=== PATIENT | male | born 1945 | race Caucasian/White ===

== ENCOUNTER 2018-10-17 08:03 | Outpatient (CLI) | payer MEDICARE, SELFPAY ==
[2018-10-17 09:57] LABS: ALT 22 U/L (12-78); AST 24 U/L (15-37); Albumin 3.8 g/dL (3.4-5.0); Alkaline Phosphatase 60 U/L (46-116); Anion Gap 9.2 mmol/L (3-11); BUN 25 mg/dL (7-18); Bilirubin, Total 0.8 mg/dL (0.2-1.0); CO2 28.8 mmol/L (21.0-32.0); CREATININE 1.41 mg/dL (0.70-1.30); Calcium 9.3 mg/dL (8.5-10.1); Chloride 103 mmol/L (98-107); Cholesterol 149 mg/dL (50-200); Glucose 94 mg/dL (70-100); HDL Cholesterol 46 mg/dL (40-60); LDL CHOLESTEROL 83 mg/dL (<100); Potassium 4.2 mmol/L (3.5-5.1); Sodium 141 mmol/L (136-145); Total Protein 7.9 g/dL (6.4-8.2); Triglyceride 110 mg/dL (30-150)
[2018-10-17 10:13] LABS: Uric Acid 8.4 mg/dL (3.5-7.2)
== END 2018-10-17 08:23 ==
PROVIDERS: PCP Family Medicine; Visit Provider Family Medicine
DX: I10 Essential (primary) hypertension (principal); E78.5 Hyperlipidemia, unspecified; M10.9 Gout, unspecified
CPT/HCPCS: 36415; 80053; 80061; 83721; 84550

== ENCOUNTER → 2018-12-23 09:35 | Outpatient (BNVA) | payer MEDICARE, SELFPAY | PROVIDERS: PCP Family Medicine; Visit Provider Nurse Practitioner Adult Health | DX: G56.03 Carpal tunnel syndrome, bilateral upper limbs (principal); I10 Essential (primary) hypertension; G56.23 Lesion of ulnar nerve, bilateral upper limbs | CPT/HCPCS: 95911; 99203; 99215 ==

== ENCOUNTER → 2019-01-19 12:45 | Outpatient (BNVA) | payer MEDICARE, SELFPAY | PROVIDERS: PCP Family Medicine; Referring Provider Family Medicine; Visit Provider Student in an Organized Health Care Education/Training Program | DX: G56.03 Carpal tunnel syndrome, bilateral upper limbs; M77.01 Medial epicondylitis, right elbow | CPT/HCPCS: 99204; 99214 ==

== ENCOUNTER 2019-01-19 13:16 | Outpatient (REF) | payer MEDICARE, SELFPAY ==
--- NOTE | 2019-01-19 12:10 | SKI_PTH ---
PATIENT: Steve Langley LOC: [facility] U#:[id number] AGE/SX: 73/M ROOM: RE01/19/[address]: Kanu Savage DO : 1945 BED: DIS: 01/19/2019 SPEC #: [id number] RECD: 01/19/19 18:10 STATUS: HARLEY REFinesse #: [id number] KELLY: 01/19/19 12:[address]: Kanu Savage DEPT: Surgical Specimen RECD BY: Jackie Chery ENTERED: 01/19/19 18:11 SP TYPE: ROXANNE GOLDSMITH DR: Juana Ibanez MD, DC Tissues: 1 - SKIN BIOPSY(SHAVE/PUNCH) Procedures: SKIN LEVEL 4 Comments: [id number]
== END 2019-01-19 13:36 ==
LOC: LBN 13:16
PROVIDERS: PCP Family Medicine; Visit Provider Otolaryngology Otolaryngology/Facial Plastic Surgery
DX: L57.0 Actinic keratosis (principal)
CPT/HCPCS: 88305

== ENCOUNTER 2019-02-16 07:38 | Outpatient (CLI) | payer MEDICARE, SELFPAY ==
[2019-02-16 09:52] LABS: Hemoglobin A1C 5.7 % (4.5-6.2)
[2019-02-16 11:29] LABS: ALT 27 U/L (12-78); AST 27 U/L (15-37); Albumin 3.9 g/dL (3.4-5.0); Alkaline Phosphatase 60 U/L (46-116); Anion Gap 10.2 mmol/L (3-11); BUN 19 mg/dL (7-18); Bilirubin, Total 0.5 mg/dL (0.2-1.0); CO2 24.8 mmol/L (21.0-32.0); CREATININE 1.16 mg/dL (0.70-1.30); Calcium 9.5 mg/dL (8.5-10.1); Chloride 103 mmol/L (98-107); Glucose 102 mg/dL (70-100); Potassium 4.4 mmol/L (3.5-5.1); Sodium 138 mmol/L (136-145); TSH (W/Ref FT4) 3.29 uIU/mL (0.358-3.74); Total Protein 7.7 g/dL (6.4-8.2); Uric Acid 6.5 mg/dL (3.5-7.2)
== END 2019-02-16 07:58 ==
PROVIDERS: PCP Family Medicine; Visit Provider Family Medicine
DX: M10.9 Gout, unspecified (principal); N28.9 Disorder of kidney and ureter, unspecified; G56.00 Carpal tunnel syndrome, unspecified upper limb; G56.20 Lesion of ulnar nerve, unspecified upper limb; I10 Essential (primary) hypertension; R73.09 Other abnormal glucose
CPT/HCPCS: 36415; 80053; 83036; 84443; 84550

== ENCOUNTER 2019-04-17 08:46 | Outpatient (CLI) | payer MEDICARE, SELFPAY ==
--- NOTE | 2019-04-17 08:00 | HPE_ITS ---
Assessment and Plan (1) Carpal tunnel syndrome of left wrist: Current visit: No Status: Chronic Plan: Educated patient on surgery covering surgical technique, recovery process, benefits and risks including but not limited to risk of infection, blood clot, damage to soft tissue/blood vessels/nerves in detail. After discussion patient gives verbal understanding of risks and elects to proceed with scheduling surgery. Patient had opportunity to have questions answered to their satisfaction. They will contact office if issues arise. Patient will continue to be scheduled for left ECTR with Dr. Amezcua. History of Present Illness Narrative: Mr. Langley is a 74-year-old male who presents to clinic for pre- operative visit for left ECTR with Dr. Amezcua. Patient has been experiencing bilateral hand numbness and tingling that has been present for approximately 7-8 months. Symptoms used to cause significant nighttime symptoms that would wake him up and resolve as he moved his hands around. Symptoms are also aggravated during the day especially when texting on his phone, typing, driving and using hand tools. He tried nighttime bracing which helped some but has continued to have daytime symptoms and stiffness that interferes with his desired activity. Patient was seen by neurology where he had nerve conduction studies which as per Ms. 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 Denies any fine motor dexterity loss. Due to his continued symptoms he w as seen in orthopedic clinic at which time he was offered surgical intervention. Patient was eager to proceed with left ECTR. Pertinent Surgical Information Patient's past medical history is pertinent for severe arteriosclerotic cardiovascular disease that required cardiac catheterization in 2004 for stent placement. However, patient denies any continued cardiac issues following 2005. States he has continued to do well with medication. Patient has had elective surgery following cardiac catheterization including cholecystectomy and several skin excisions without any complications. Denies any history of chest pain following his cardiac catheterization in 2004; no alarming symptoms were identified with review of systems at today's visit. Denies past medical history of: stroke, asthma, COPD, sleep apnea, liver issues, hepatitis, gastrointestinal ulcers, bleeding disorders, seizures, migraines, anxiety, depression, diabetes, autoimmune disorders, thyroid issues Denies prior complications from surgery or anesthesia. Review of Systems Constitutional Denies fever(s), Denies frequent falls and Denies headache(s) Eyes Denies change in vision ENT Denies dizziness, Denies ear discharge, Denies headache(s), Denies epistaxis, Denies nasal discharge and Denies sore throat Cardiovascular Denies chest pain, Denies rapid heart rate, Denies irregular heart rhythm, Denies dyspnea, Denies dyspnea on exertion, Denies orthopnea, Denies paroxysmal nocturnal dyspnea and Denies slow heart rate Respiratory Denies cough, Denies dyspnea, Denies dyspnea on exertion and Denies wheezing Gastrointestinal Denies abdominal pain, Denies melena, Denies hematochezia, Denies constipation, Denies diarrhea, Denies nausea and Denies vomiting Genitourinary Denies hematuria, Denies dysuria and Denies urinary urgency Musculoskeletal Reports as per HPI, Reports numbness and Reports tingling Neurologic Denies dizziness, Denies frequent falls, Denies headache(s), Reports numbness and Reports tingling Psychiatric Denies anxiety and Denies depression Allergic/Immunologic Denies wheezing [facility] History 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/15) ASCVD (arteriosclerotic cardiovascular disease) (Chronic) Basal cell carcinoma of nose (Chronic 07/18/15) Carotid artery stenosis (Chronic) Carpal tunnel syndrome of left wrist (Chronic) Carpal tunnel syndrome of right wrist (Chronic) Cervical radiculopathy (Chronic 03/15/16) Essential hypertension (Chronic 10/23/13) Gastric motor function disorder (Resolved) Gout (Chronic) Hyperlipidemia (Chronic) Lumbago (Chronic) Medial epicondylitis, 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) Pain of left great toe (Chronic 12/24/17) Renal insufficiency (Chronic) 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) Tobacco use disorder (Resolved) Ulnar neuropathy (Acute) Surgical History Cholecystectomy Colonoscopy - MAC (~1999) History of intravascular stent placement (Resolved) left heart cardiac cath Skin Cancer Removal Stent placement Social History Smoking/Tobacco Use Status: Former Tobacco Use Quit Date: 09/16/96 Second Hand Exposure: Yes Alcohol Intake: current Alcohol Intake frequency: 0-2 drinks per day Alcohol type: beer, wine and hard liquor Drug use: Never Substance use type: does not use Caregiver/Support person: No Household members: spouse Housing: house Pets and animals: Yes Pets and animals: cat(s), dog(s) and horse(s) Sexually active: Yes Current gender identity: male What is your relationship status?: How often do you talk on the phone with friends or family?: once per week How often do you get together with friends or relatives?: once per week How often do you attend latter day or uatsdin services?: decline to answer Do you belong to any clubs or organized social groups?: decline to answer Panel score (0-1 are the most socially isolated patients): 1 What type of physical activity do you participate in: aerobic and yoga Duration: 15-30 minutes/day Frequency: 3-4 times per week Sophia/Restorationism: No preference Special sophia needs: No Do you feel safe at home: Yes Do you feel safe in your relationship?: Yes Meds Home Medications Medication Instructions Recorded Confirmed Type multivitamin [Daily Multiple] 1 ea PO DAILY 10/11/16 04/17/19 History lisinopril 40 mg tablet 40 mg PO DAILY #90 tab-cap 11/04/18 04/17/19 Rx pravastatin 10 mg tablet 10 mg PO DAILY #90 tab-cap 11/04/18 04/17/19 Rx aspirin 81 mg chewable tablet 81 mg PO DAILY 12/23/18 04/17/19 History coenzyme Q10 100 mg capsule 100 mg PO DAILY 12/23/18 04/17/19 History adjuvant AS01B (PF)vial 1 of 2 1 ml IM ONCE #0.5 ml 02/24/19 04/17/19 Rx pneumoc 13-kendra conj-dip cr(PF) 0.5 0.5 ml IM ONCE #0.5 ml 02/24/19 04/17/19 Rx mL IM syringe omega-3 fatty acids 1,000 mg 1,000 mg PO DAILY 04/17/19 04/17/19 History capsule pyridoxine (vitamin B6) 100 mg 100 mg PO DAILY tab 04/17/19 04/17/19 History tablet Allergies Allergy/AdvReac Type Severity Reaction Status Date / Time No Known Allergies Allergy Unverified 08/02/19 13:36 Exam Const General: cooperative and no acute distress [facility] Head: normal to inspection, normocephalic and atraumatic Ears: external ears normal General nose exam: external nose normal and no nasal discharge Face and sinus: face symmetric Mouth: oral mucosae normal, lip normal, tongue normal and moist mucous membranes Teeth and gingiva: dentition normal Throat: posterior oropharynx normal Eyes General: appearance normal, both eyes and all related structures Pupils: PERRL EOM: EOM intact bilaterally Neck Neck: trachea midline Carotids: normal carotid upstroke Lymphatic: no lymphadenopathy noted Resp Effort & Inspection: normal respiratory effort and able to speak in complete sentences Auscultation: clear to auscultation bilaterally, no rales, no rhonchi and no wheezes Cardio Heart Sounds: S1 normal, S2 normal and no murmurs Pulses: radial pulses present bilaterally Skin General skin exam: no rashes or lesions noted
== END 2019-04-17 09:06 ==
PROVIDERS: PCP Family Medicine; Visit Provider Student in an Organized Health Care Education/Training Program
DX: G56.02 Carpal tunnel syndrome, left upper limb (principal); I10 Essential (primary) hypertension; Z01.818 Encounter for other preprocedural examination
CPT/HCPCS: NC

== ENCOUNTER 2019-04-30 10:05 | Day surgery (SDC) | payer MEDICARE, SELFPAY ==
[2019-04-17 08:56] VITALS: BP 127/69; PULSE 49; RESP 16; TEMP 36.4; O2SAT 99
--- NOTE | 2019-04-30 09:56 | PDOC.DSDIS_ITS ---
Discharge Plan Disposition Patient Disposition: HOME Condition: Good Discharge Details Reason For Visit: (L) CTS Attending Provider: Brian Amezcua Primary Care Provider: Juana Ibanez Home Meds and New Rx's Prescriptions: New hydrocodone-acetaminophen 5-325 mg tablet 1 tab PO Q6H PRN (Reason: pain) Qty: 4 RF: 0 acetaminophen 500 mg tablet 500 mg PO Q6H PRN (Reason: pain) Qty: 30 RF: 0 ibuprofen 600 mg tablet 600 mg PO TID PRNQty: 30 RF: 0 Continued aspirin [Aspirin Childrens] 81 mg tablet,chewable 81 mg PO DAILY RF: 0 coenzyme Q10 [CoQ-10] 100 mg capsule 100 mg PO DAILY RF: 0 Prevnar 13 (PF) 0.5 mL syringe 0.5 ml IM ONCE Qty: 0.5 RF: 0 Shingrix Adjuvant Component-PF suspension 1 ml IM ONCE Qty: 0.5 RF: 1 pyridoxine (vitamin B6) 100 mg tablet 100 mg PO DAILY RF: 0 omega-3 fatty acids 1,000 mg capsule 1,000 mg PO DAILY RF: 0 multivitamin [Daily Multiple] 1 EACH tablet 1 ea PO DAILY RF: 0 lisinopril 40 mg tablet 40 mg PO DAILY Qty: 90 RF: 4 pravastatin 10 mg tablet 10 mg PO DAILY Qty: 90 RF: 4 Discharge Instructions Stand Alone Forms: Goldie Nair Tunnel Release Referrals: Brian Amezcua MD [ [facility] STAFF PHYSICIAN] - Activity:: Activity as Tolerated Remove Dressings/Wound Care:: 48 hours Shower/Bathe:: 48 hours Diet:: As Tolerated DS: Diagnosis Discharge Diagnosis (1) Carpal tunnel syndrome of left wrist: Status: Chronic
[2019-04-30] MEDS: Lactated Ringers 1,000 ML 80 ML IV (10:20)
[2019-04-30 10:26] VITALS: BP 152/67; PULSE 46; RESP 19; TEMP 36.1; O2SAT 98
[2019-04-30] MEDS: ceFAZolin 2 GM/50 ML BAG IVPB (10:45)
[2019-04-30] MEDS: Sodium Bicarbonate 50 MEQ/50 ML VIAL (10:52)
[2019-04-30] MEDS: Lidocaine 1% Multi-Dose 50 ML VIAL (10:52)
[2019-04-30 11:50] VITALS: BP 151/69; PULSE 45; RESP 16; TEMP 36.1; O2SAT 100
--- NOTE | 2019-05-01 07:28 | W.PM.OP ---
Date of service: 04/30/19 Time of Service: 12:29 Operative Note DATE OF PROCEDURE: 04/30/19 PRE-OP DIAGNOSIS: Left Carpal Tunnel Syndrome POST-OP DIAGNOSIS: same PROCEDURE: Left Endoscopic Carpal Tunnel Release SURGEON: Brian Amezcua ANESTHESIA: WAQAS ESTIMATED BLOOD LOSS: 0 PATHOLOGY: none sent TOURNIQUET TIME: 3 COMPLICATIONS: None Patient was transported to: same day Patient's condition: stable Indications: I have seen Thaddeus in clinic for symptoms of carpal tunnel syndrome. The numbness, tingling, and pain limited function. Clinical exam findings confirmed the diagnosis of carpal tunnel syndrome. Nonoperative measures such as bracing, time, activity modifications had been tried but disability and pain persisted. I discussed carpal tunnel release with the patient. I reviewed the risks of the procedure to include, but not limited to, bleeding, infection, pain, stiffness, incomplete release, damage to nerves or vessels, persistent numbness, recurrence. Despite these risks, the patient elected to proceed. Findings: There was tightened carpal tunnel. This was dilated and released successfully with the endoscopic with increased space within the tunnel. The antebrachial fascia was released proximally freeing the median nerve at the wrist. Procedure Description: Thaddeus was greeted in the preoperative holding area where the correct side was identified and marked. The consent was reviewed with the patient and signed. The history and physical was updated. All questions were answered. He was taken back to the operating room. The patient was placed into the supine position on the operating room table with the left arm on an arm board. A nonsterile tourniquet was placed high onto the arm. All bony prominences were well padded. Prophylactic antibiotics in the form of Cefazolin were administered. The left arm was then prepped with Chloraprep and draped in a standard fashion with stockinette and extremity drape. A timeout to confirm correct identity, side and site, procedure, allergies, anesthesia, and medical concerns was performed. The surgical site was marked in the volar wrist creases in line with the radial border of the fourth ray. This area was anesthetized with approximately 6cc of 1% Lidocaine. The limb was then exsanguinated with an Esmarch. The skin was incised with a 15 blade, approximately 1cm. The skin only was cut and the deeper tissue was dissected bluntly with a tenotomy scissor, avoiding passing nerve and venous structures. The fascia was penetrated and opened bluntly. A two-prong skin hook was placed under this proximal fascial edge. A series of hamate finders were used to identify and dilate the carpal tunnel. Synovial elevator was used to free synovial attachments to the underside of the transverse carpal ligament. My thumb was kept in the palm to bi the distal extent of the carpal tunnel and correctly position the hand. The Microaire endoscope was inserted without difficulty and without resistance. Excellent visualization showed horizontally running fibers of the transverse carpal ligament (TCL). The distal extent of the TCL was visualized and the end of the scope palpated with the thumb. The blade was elevated and withdrawn from distal to proximal. The TCL was split into two flaps. The endoscope was reinserted to confirm complete release and any remnant ligament was incised. The scope was withdrawn and the proximal aspect of the carpal tunnel was grossly inspected and appeared release with the median nerve visible. The antebrachial fascia at the level of the wrist was then freed from the overlying skin and then the underlying median nerve with blunt dissection. This was transected longitudinally for about 3cm proximal to the wrist incision. The wound was then irrigated with easy flow of irrigant distally and proximally. The incision was closed with a single 4-0 Nylon suture. The wound was dressed with Xeroform, Gauze, Kerlix and Toro. The tourniquet was deflated with the initial dressing and held with some pressure. Blood flow returned easily to all digits with capillary refill less than 2 seconds. The patient tolerated the procedure well and was returned to the Same Day Surgery area in a stable condition suffering no known complication.
== END 2019-04-30 12:06 | disposition home or self-care (01) ==
LOC: SUR 10:05
PROVIDERS: PCP Family Medicine; Visit Provider Student in an Organized Health Care Education/Training Program
PROC: 01N54ZZ Release Median Nerve, Percutaneous Endoscopic Approach (ICD-10-PCS; CPT 29848; principal; 2019-04-30 12:00)
DX: G56.02 Carpal tunnel syndrome, left upper limb (principal); I10 Essential (primary) hypertension
CPT/HCPCS: 29848; J0690; L3650

== ENCOUNTER → 2019-05-11 08:31 | Outpatient (BNVA) | payer MEDICARE, SELFPAY | PROVIDERS: PCP Family Medicine; Referring Provider Family Medicine; Visit Provider Student in an Organized Health Care Education/Training Program | DX: Z47.89 Encounter for other orthopedic aftercare (principal); G56.02 Carpal tunnel syndrome, left upper limb ==

== ENCOUNTER 2019-05-12 06:22 | Day surgery (SDC) | payer MEDICARE, SELFPAY ==
[2019-05-12 06:33] VITALS: BP 105/53; PULSE 52; RESP 16; TEMP 36.3; O2SAT 96
[2019-05-12] MEDS: Lactated Ringers 1,000 ML 80 ML IV (06:51)
--- NOTE | 2019-05-12 07:15 | PDOC.DSDIS_ITS ---
Discharge Plan Disposition Patient Disposition: HOME Condition: Good Discharge Details Reason For Visit: R CTS Attending Provider: Brian Amezcua Primary Care Provider: Juana Ibanez Home Meds and New Rx's Prescriptions: Continued aspirin [Aspirin Childrens] 81 mg tablet,chewable 81 mg PO DAILY RF: 0 coenzyme Q10 [CoQ-10] 100 mg capsule 100 mg PO DAILY RF: 0 Prevnar 13 (PF) 0.5 mL syringe 0.5 ml IM ONCE Qty: 0.5 RF: 0 Shingrix Adjuvant Component-PF suspension 1 ml IM ONCE Qty: 0.5 RF: 1 pyridoxine (vitamin B6) 100 mg tablet 100 mg PO DAILY RF: 0 omega-3 fatty acids 1,000 mg capsule 1,000 mg PO DAILY RF: 0 multivitamin [Daily Multiple] 1 EACH tablet 1 ea PO DAILY RF: 0 lisinopril 40 mg tablet 40 mg PO DAILY Qty: 90 RF: 4 pravastatin 10 mg tablet 10 mg PO DAILY Qty: 90 RF: 4 hydrocodone-acetaminophen 5-325 mg tablet 1 tab PO Q6H PRN (Reason: pain) Qty: 4 RF: 0 acetaminophen 500 mg tablet 500 mg PO Q6H PRN (Reason: pain) Qty: 30 RF: 0 ibuprofen 600 mg tablet 600 mg PO TID PRNQty: 30 RF: 0 Discharge Instructions Stand Alone Forms: Goldie Nair Tunnel Release Referrals: Brian Amezcua MD [ [facility] STAFF PHYSICIAN] - Activity:: Elevate Remove Dressings/Wound Care:: 48 hours Shower/Bathe:: 48 hours Diet:: As Tolerated Discharge Orders Discharge Orders: Discharge Order (Routine); Ordered 05/12/19 Ordered By: Brian Amezcua DS: Diagnosis Discharge Diagnosis (1) Carpal tunnel syndrome of right wrist: Status: Chronic
[2019-05-12] MEDS: ceFAZolin 2 GM/50 ML BAG IVPB (07:28)
[2019-05-12] MEDS: Lidocaine 1% Multi-Dose 50 ML VIAL (07:35)
[2019-05-12] MEDS: Sodium Bicarbonate 50 MEQ/50 ML VIAL (07:35)
--- NOTE | 2019-05-12 07:50 | W.PM.OP ---
Date of service: 05/12/19 Time of Service: 07:50 Operative Note DATE OF PROCEDURE: 05/12/19 PRE-OP DIAGNOSIS: Right Carpal Tunnel Syndrome POST-OP DIAGNOSIS: same PROCEDURE: Right Endoscopic Carpal Tunnel Release SURGEON: Brian Amezcua ANESTHESIA: GETMary ESTIMATED BLOOD LOSS: 0 PATHOLOGY: none sent TOURNIQUET TIME: 8 COMPLICATIONS: None Patient was transported to: same day Patient's condition: stable Indications: I have seen Thaddeus in clinic for symptoms of carpal tunnel syndrome. The numbness, tingling, and pain limited function. Clinical exam findings with nerve conduction tests confirmed the diagnosis of carpal tunnel syndrome. Nonoperative measures such as bracing, time, activity modifications had been tried but disability and pain persisted. He had a previous carpal tunnel release on the left with good results. I discussed carpal tunnel release with the patient. I reviewed the risks of the procedure to include, but not limited to, bleeding, infection, pain, stiffness, incomplete release, damage to nerves or vessels, persistent numbness, recurrence. Despite these risks, Thaddeus elected to proceed. Findings: There was tightened carpal tunnel. This was dilated and released successfully with the endoscopic with increased space within the tunnel. The antebrachial fascia was released proximally freeing the median nerve at the wrist. Procedure Description: Thaddeus was greeted in the preoperative holding area where the correct side was identified and marked. The consent was reviewed with the patient and signed. The history and physical was updated. All questions were answered. He was taken back to the operating room. The patient was placed into the supine position on the operating room table with the right arm on an arm board. A nonsterile tourniquet was placed high onto the arm. All bony prominences were well padded. Prophylactic antibiotics in the form of Cefazolin were administered. The right arm was then prepped with Chloraprep and draped in a standard fashion with stockinette and extremity drape. A timeout to confirm correct identity, side and site, procedure, allergies, anesthesia, and medical concerns was performed. The surgical site was marked in the volar wrist creases in line with the radial border of the fourth ray. This area was anesthetized with approximately 6cc of 1% Lidocaine. The limb was then exsanguinated with an Esmarch. The skin was incised with a 15 blade, approximately 1cm. The skin only was cut and the deeper tissue was dissected bluntly with a tenotomy scissor, avoiding passing nerve and venous structures. The fascia was penetrated and opened bluntly. A two-prong skin hook was placed under this proximal fascial edge. A series of hamate finders were used to identify and dilate the carpal tunnel. Synovial elevator was used to free synovial attachments to the underside of the transverse carpal ligament. My thumb was kept in the palm to bi the distal extent of the carpal tunnel and correctly position the hand. The Microaire endoscope was inserted without difficulty and without resistance. Excellent visualization showed horizontally running fibers of the transverse carpal ligament (TCL). The distal extent of the TCL was visualized and the end of the scope palpated with the thumb. The blade was elevated and withdrawn from distal to proximal. The TCL was split into two flaps. The endoscope was reinserted to confirm complete release and any remnant ligament was incised. The scope was withdrawn and the proximal aspect of the carpal tunnel was grossly inspected and appeared release with the median nerve visible. The antebrachial fascia at the level of the wrist was then freed from the overlying skin and then the underlying median nerve with blunt dissection. This was transected longitudinally for about 3cm proximal to the wrist incision. The wound was then irrigated with easy flow of irrigant distally and proximally. The incision was closed with a single 4-0 Nylon suture. The wound was dressed with Xeroform, Gauze, Kerlix and Toro. The tourniquet was deflated with the initial dressing and held with some pressure. Blood flow returned easily to all digits with capillary refill less than 2 seconds. The patient tolerated the procedure well and was returned to the Same Day Surgery area in a stable condition suffering no known complication.
[2019-05-12 08:15] VITALS: BP 125/67; PULSE 46; RESP 16; TEMP 36.1; O2SAT 100
== END 2019-05-12 08:50 | disposition home or self-care (01) ==
PROVIDERS: PCP Family Medicine; Visit Provider Student in an Organized Health Care Education/Training Program
PROC: 01N54ZZ Release Median Nerve, Percutaneous Endoscopic Approach (ICD-10-PCS; CPT 29848; principal; 2019-05-12 07:30)
DX: G56.01 Carpal tunnel syndrome, right upper limb (principal)
CPT/HCPCS: 29848; J0690; J1885

== ENCOUNTER → 2019-05-25 09:30 | Outpatient (BNVA) | payer MEDICARE, SELFPAY | PROVIDERS: PCP Family Medicine; Referring Provider Family Medicine; Visit Provider Student in an Organized Health Care Education/Training Program | DX: Z47.89 Encounter for other orthopedic aftercare (principal); G56.01 Carpal tunnel syndrome, right upper limb ==

== ENCOUNTER 2019-10-12 08:22 | Outpatient (CLI) | payer MEDICARE, SELFPAY ==
[2019-10-12 10:20] LABS: Albumin 3.9 g/dL (3.4-5.0); Anion Gap 8.7 mmol/L (3-11); Bilirubin, Total 0.6 mg/dL (0.2-1.0); CO2 27.3 mmol/L (21.0-32.0); CREATININE 1.23 mg/dL (0.70-1.30); Estimated GFR 57.21 (mL/min/1.73m2); Potassium 5.1 mmol/L (3.5-5.1); Total Protein 7.7 g/dL (6.4-8.2)
== END 2019-10-12 08:42 ==
PROVIDERS: PCP Family Medicine; Visit Provider Family Medicine
DX: I25.10 Atherosclerotic heart disease of native coronary artery without angina pectoris (principal); M70.41 Prepatellar bursitis, right knee; M72.0 Palmar fascial fibromatosis [Dupuytren]
CPT/HCPCS: 36415; 80053; 80061; 99214

== ENCOUNTER 2020-03-14 13:56 | Outpatient (CLI) | payer MEDICARE, SELFPAY ==
--- NOTE | 2020-03-14 14:02 | DI.RAD_ITS ---
EXAM: XR SHOULDER RT COMPLETE 2+V CLINICAL HISTORY: eval R shoulder pain and limited motion. TECHNIQUE: 2D digital imaging was performed. COMPARISON: No exams were available for comparison FINDINGS: BONES: No acute fracture is present. No bony destructive lesion is seen. JOINTS: No dislocation present. Mild degenerative changes at the glenohumeral joint. SOFT TISSUE: Calcification adjacent to the greater tuberosity suggesting calcific tendinitis. Dystro phic calcification is seen at the inferior aspect of the glenoid. 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 DATA REPOSITORY: RADIATION DOSE DELIVERED:
--- NOTE | 2020-03-14 14:06 | DI.RAD_ITS ---
EXAM: XR HIP RT AP LAT ONLY CLINICAL HISTORY: eval R hip pain, ?impingement. TECHNIQUE: 2D digital imaging was performed. COMPARISON: No exams were available for comparison FINDINGS: There are mild degenerative changes of the right hip characterized by mild subchondral sclerosis and acetabular spurring. The bones are intact and normally mineralized. Vascular calcifications are see n in the soft tissues. IMPRESSION: Mild degenerative changes of the right hip. DATA REPOSITORY: RADIATION DOSE DELIVERED:
== END 2020-03-14 14:16 ==
PROVIDERS: PCP Family Medicine; Referring Provider Family Medicine; Visit Provider Student in an Organized Health Care Education/Training Program
DX: M25.511 Pain in right shoulder (principal); M75.31 Calcific tendinitis of right shoulder; M19.011 Primary osteoarthritis, right shoulder; M25.551 Pain in right hip; M16.11 Unilateral primary osteoarthritis, right hip; M54.5 Low back pain; G89.29 Other chronic pain; M75.101 Unspecified rotator cuff tear or rupture of right shoulder, not specified as traumatic; M75.21 Bicipital tendinitis, right shoulder; M25.852 Other specified joint disorders, left hip; I10 Essential (primary) hypertension
CPT/HCPCS: 99214; 73030; 73502

== ENCOUNTER 2020-03-18 00:35 | Outpatient (CLI) | payer MEDICARE, SELFPAY ==
--- NOTE | 2020-03-18 07:00 | DI.MRI_ITS ---
EXAM: MR UPPER JOINT RT WO CLINICAL HISTORY: PAIN RT SHOULDER, M25.511. TECHNIQUE: Multiplanar multisequence MRI was performed. COMPARISON: CR XR SHOULDER RT COMPLETE 2+V from 03/14/2020 FINDINGS: BONES: There is no fracture or contusion pattern. JOINTS: Moderate degenerative changes are seen at the acromioclavicular joint. The glenohumeral join t is normal. Mild degenerative changes are seen at the greater tuberosity. TENDONS: Supraspinatus: There is a full-thickness supraspinatus tear with retraction to the level of the gleno humeral joint. Infraspinatus: There is thickening and increased signal seen in the infraspinatus tendon. This may r epresent partial tear and/or tendinosis. Subscapularis: There is a partial tear of the superior aspect of the subscapularis tendon at its inse rtion site. Teres Minor: Unremarkable. Biceps and [place]: There is medial dislocation of the biceps tendon. Biceps tendon shows increased s ignal and size suggesting a partial tear and/or tendinosis. MUSCLES: Unremarkable. GLENOID LABRUM: Unremarkable on this noncontrast examination. SOFT TISSUES: There is fluid in the subacromial subdeltoid bursa. LIGAMENTS: There is a tear of the transverse ligament. OTHER: There is fluid seen in the subacromial subdeltoid bursa. IMPRESSION: 1. Full-thickness tear with retraction of the supraspinatus tendon. 2. Tear of the transverse ligament with medial displacement of the biceps tendon. 3. Thickening and increased signal in the biceps tendon. This may represent a partial tear and/or te ndinosis. 4. Thickening and increased signal seen in the infraspinatus tendon consistent with partial tear and/ or tendinosis. 5. Tear of the superior aspect of the subscapularis tendon. 6. Degenerative changes of the AC joint. DATA REPOSITORY:
== END 2020-03-18 00:55 ==
PROVIDERS: PCP Family Medicine; Visit Provider Student in an Organized Health Care Education/Training Program
DX: M25.511 Pain in right shoulder (principal); M75.101 Unspecified rotator cuff tear or rupture of right shoulder, not specified as traumatic; S46.211A Strain of muscle, fascia and tendon of other parts of biceps, right arm, initial encounter; M19.011 Primary osteoarthritis, right shoulder
CPT/HCPCS: 73221

== ENCOUNTER 2020-08-29 09:49 | Outpatient (REF) | payer MEDICARE, SELFPAY ==
--- NOTE | 2020-08-29 09:27 | SKI_PTH ---
PATIENT: Steve Langley LOC: [facility] U#:[id number] AGE/SX: 75/M ROOM: RE08/29/[address]: Kanu Savage DO : 1945 BED: DIS: 08/29/2020 SPEC #: [id number] RECD: 08/29/20 18:07 STATUS: HARLEY REFinesse #: [id number] KELLY: 08/29/20 09:[address]: Kanu Savage DEPT: Surgical Specimen RECD BY: Jackie Chery ENTERED: 08/29/20 18:08 SP TYPE: ROXANNE GOLDSMITH DR: Juana Ibanez MD, DC Tissues: 1 - SKIN BIOPSY(SHAVE/PUNCH) 2 - SKIN BIOPSY(SHAVE/PUNCH) Procedures: SKIN LEVEL 4 Comments: [id number]
== END 2020-08-29 10:09 ==
LOC: LBN 09:49
PROVIDERS: PCP Family Medicine; Visit Provider Otolaryngology Otolaryngology/Facial Plastic Surgery
DX: L82.1 Other seborrheic keratosis (principal)
CPT/HCPCS: 88305

== ENCOUNTER 2020-10-18 03:15 | Outpatient (CLI) | payer MEDICARE, SELFPAY ==
[2020-10-18 11:04] LABS: ALT 29 U/L (16-63); AST 24 U/L (15-37); Alkaline Phosphatase 59 U/L (46-116); Anion Gap 6.2 mmol/L (3-11); BUN 23 mg/dL (7-18); Bilirubin, Total 0.6 mg/dL (0.2-1.0); CO2 26.8 mmol/L (21.0-32.0); CREATININE 1.3 mg/dL (0.70-1.30); Calcium 9.5 mg/dL (8.5-10.1); Calculated LDL 92 mg/dL (<100); Chloride 104 mmol/L (98-107); Cholesterol 172 mg/dL (<200); Estimated GFR 53.53 (mL/min/1.73m2); Glucose 95 mg/dL (74-106); HDL Cholesterol 49 mg/dL (40-60); Potassium 4.6 mmol/L (3.5-5.1); Sodium 137 mmol/L (136-145); Total Protein 8.1 g/dL (6.4-8.2); Triglyceride 157 mg/dL (<150)
[2020-10-18 17:46] LABS: PSA, Diagnostic 10.8 ng/mL (0.0-6.5)
== END 2020-10-18 03:16 | disposition home or self-care (01) ==
PROVIDERS: PCP Family Medicine; Visit Provider Family Medicine
DX: I10 Essential (primary) hypertension (principal); E78.5 Hyperlipidemia, unspecified; N40.0 Benign prostatic hyperplasia without lower urinary tract symptoms
CPT/HCPCS: 36415; 80053; 80061; 84153

== ENCOUNTER → 2020-11-08 10:49 | Outpatient (BNVA) | payer MEDICARE, SELFPAY | PROVIDERS: PCP Family Medicine; Referring Provider Family Medicine; Visit Provider Nurse Practitioner Gerontology | DX: R97.20 Elevated prostate specific antigen [PSA] (principal); N40.0 Benign prostatic hyperplasia without lower urinary tract symptoms | CPT/HCPCS: 81003; 99215 ==

== ENCOUNTER 2021-01-09 04:22 | Outpatient (CLI) | payer MEDICARE, SELFPAY ==
[2021-01-09 17:29] LABS: PSA, Diagnostic 9.9 ng/mL (0.0-6.5)
== END 2021-01-09 04:23 | disposition home or self-care (01) ==
LOC: LBO 04:22
PROVIDERS: PCP Family Medicine; Visit Provider Nurse Practitioner Gerontology
DX: R97.20 Elevated prostate specific antigen [PSA] (principal)
CPT/HCPCS: 36415; 84153

== ENCOUNTER → 2021-01-16 08:34 | Outpatient (BNVA) | payer MEDICARE, SELFPAY | PROVIDERS: PCP Family Medicine; Referring Provider Family Medicine; Visit Provider Nurse Practitioner Gerontology | DX: R35.0 Frequency of micturition (principal); R97.20 Elevated prostate specific antigen [PSA] | CPT/HCPCS: 99214 ==

== ENCOUNTER 2021-04-10 02:18 | Outpatient (CLI) | payer MEDICARE, SELFPAY | END 2021-04-10 02:19 | disposition home or self-care (01) | LOC: LBO 02:18 | PROVIDERS: PCP Family Medicine; Visit Provider Nurse Practitioner Gerontology | DX: R97.20 Elevated prostate specific antigen [PSA] (principal) | CPT/HCPCS: 36415; 84154 ==

== ENCOUNTER → 2021-04-18 09:56 | Outpatient (BNVA) | payer MEDICARE, SELFPAY | PROVIDERS: PCP Family Medicine; Referring Provider Family Medicine; Visit Provider Nurse Practitioner Gerontology | DX: N42.89 Other specified disorders of prostate (principal); R97.20 Elevated prostate specific antigen [PSA] | CPT/HCPCS: 99214 ==

== ENCOUNTER 2021-05-23 01:19 | Outpatient (CLI) | payer MEDICARE, SELFPAY ==
--- NOTE | 2021-05-23 07:30 | DI.US_ITS ---
Exam(s) US PROSTATE BIOPSY EXAM: US PROSTATE BIOPSY CLINICAL HISTORY: elevated PSA 13.9, and asymmetrical prostate,R97.20,N42.89 TECHNIQUE: Ultrasound performed using standard protocol. COMPARISON: No exams were available for comparison FINDINGS: Ultrasound was provided for Dr. Lucio for guidance with performing prostate biopsy. Twelve samples w ere obtained. Prostate volume 19 cc. Please see procedure note for details. DATA REPOSITORY:
--- NOTE | 2021-05-23 13:30 | PROST_PTH ---
PATIENT: Steve Langley LOC: [facility] U#:[id number] AGE/SX: 76/M ROOM: RE05/23/[address]: Julianna Padilla DNP : 1945 BED: DIS: 05/23/2021 SPEC #: [id number] RECD: 05/23/21 14:14 STATUS: HARLEY ZIEGLER #: [id number] KELLY: 05/23/21 13:[address]: Julianna Padilla DEPT: Surgical Specimen RECD BY: Dina Morel ENTERED: 05/23/21 14:37 SP TYPE: PROST OTHR DR: MD Juana Degroot MD, DC Tissues: 1 - PROSTATE NEEDLE BIOPSY 2 - PROSTATE NEEDLE BIOPSY 3 - PROSTATE NEEDLE BIOPSY 4 - PROSTATE NEEDLE BIOPSY 5 - PROSTATE NEEDLE BIOPSY 6 - PROSTATE NEEDLE BIOPSY 7 - PROSTATE NEEDLE BIOPSY 8 - PROSTATE NEEDLE BIOPSY 9 - PROSTATE NEEDLE BIOPSY 10 - PROSTATE NEEDLE BIOPSY 11 - PROSTATE NEEDLE BIOPSY 12 - PROSTATE NEEDLE BIOPSY Procedures: GROSS AND MICRO LEVEL 4 Comments: [id number]
--- NOTE | 2021-05-23 13:40 | W.PM.OP ---
Date of service: 05/23/21 Time of Service: 13:41 Operative Note Operative Note DATE OF PROCEDURE: 05/23/21 PRE-OP DIAGNOSIS: Elevated PSA POST-OP DIAGNOSIS: same PROCEDURE: Transrectal ultrasound-guided biopsy of the prostate SURGEON: Lamine Lucio ANESTHESIA TYPE: Local By Surgeon Refer to Anesthesia Record ESTIMATED BLOOD LOSS: 10 PATHOLOGY: other (12 laterally directed biopsies of prostate) COMPLICATIONS: None Patient was transported to: no change Patient's condition: stable Implants: none Indications: This is a 76-year-old gentleman who has a finding of an elevated PSA (13.9 ng/mL), asymmetry of the prostate and an abnormal prostate MRI (highly suspicious for malignancy with involvement of the seminal vesicles). He presents for a prostate biopsy Findings: Prostate volume 19.2 cc Procedure Description: The patient was given a mechanical and antibiotic bowel prep. He was brought to the radiology suite on 05/23/2021. He was placed in the left lateral position. Transrectal imaging of the prostate was then performed using a variable megahertz transducer. The prostate was imaged in transverse and longitudinal planes. The prostate volume was calculated at 19.2 cc. A relative hypoechoic area was identified at the left apex. This area extended up toward the base. A periprostatic nerve block was performed using lidocaine without epinephrine. A total of 12 laterally directed biopsies were taken, labeled and sent to pathology for permanent section. On both the right and left side, the lateral base biopsies included some seminal vesicle tissue. The patient tolerated this procedure well with no complications.
== END 2021-05-23 01:39 ==
PROVIDERS: PCP Family Medicine; Visit Provider Nurse Practitioner Gerontology
DX: C61 Malignant neoplasm of prostate; R97.20 Elevated prostate specific antigen [PSA]
CPT/HCPCS: 55700; 76942; 88305

== ENCOUNTER → 2021-06-06 11:09 | Outpatient (BNVA) | payer MEDICARE, SELFPAY | PROVIDERS: PCP Family Medicine; Referring Provider Family Medicine; Visit Provider Urology | DX: C61 Malignant neoplasm of prostate (principal) | CPT/HCPCS: 99214 ==

== ENCOUNTER 2021-06-07 01:22 | Outpatient (CLI) | payer MEDICARE, SELFPAY ==
--- NOTE | 2021-06-07 07:00 | DI.NM_ITS ---
Exam(s) NM BONE SCAN WHOLE BODY GRP EXAM: MO BONE SCAN WHOLE BODY GRP CLINICAL HISTORY: baseline for new diagnosis prostate cancer,C61. TECHNIQUE: Injected Dose: 25 mCi Tc-99m MDP Delayed Images: 2-3 hours. COMPARISON: NM stress from 09/18/2012 CR XR HIP RT AP LAT ONLY from 03/14/2020 FINDINGS: There is an area of eccentric uptake seen in the left side of the upper lumbar spine. This may be wi thin osteophyte but recommend plain films for verification. No other abnormal uptake seen in the spi nal column nor in the skull and shoulder girdles nor in either ribcage. No abnormal uptake in the hips. Increased focal uptake seen in the anterior aspect of the right lydia c bone above the acetabulum, possibly degenerative. Plain films recommended. No abnormal uptake in the femoral head and neck on either side nor in the long bones of the lower extremities. Small focus of increased uptake in the right ankle region is most probably degenerative. IMPRESSION: 1. Above findings are doubtful for metastatic disease. Nevertheless, recommend plain films of the john mbosacral spine and pelvis-right hip. DATA REPOSITORY:
== END 2021-06-07 01:42 ==
PROVIDERS: PCP Family Medicine; Visit Provider Urology
DX: C61 Malignant neoplasm of prostate (principal); R93.7 Abnormal findings on diagnostic imaging of other parts of musculoskeletal system
CPT/HCPCS: 78306

== ENCOUNTER 2021-06-09 03:58 | Outpatient (CLI) | payer MEDICARE, SELFPAY ==
--- NOTE | 2021-06-09 08:45 | DI.RAD_ITS ---
Exam(s) XR LUMBAR SPINE COMPLETE EXAM: XR LUMBAR SPINE COMPLETE CLINICAL HISTORY: PROSTATE CA,F/U ABNL BONE SCAN,C61. TECHNIQUE: 2D digital imaging was performed of the lumbar spine. Five images were obtained. AP, la teral, right oblique, left oblique and L5-S1 spot views were obtained. COMPARISON: No exams were available for comparison FINDINGS: BONES: No fracture or destructive lesion. No lytic or sclerotic lesions are seen. Multilevel facet h ypertrophy is present. There are endplate osteophytes at all levels of the lumbar spine. There is a large bridging osteophyte seen on the left at the L1-2 level which corresponds to the increased upta ke on the nuclear medicine examination from 06/07/2021 DISKS: There is disc space narrowing at T12-L1, L1-L2, L4-L5 and L5-S1. ALIGNMENT: Lumbar spinal alignment is within normal limits. No spondylolysis or spondylolisthesis. SOFT TISSUE: Atherosclerosis. Surgical clips are seen in the right upper quadrant of the abdomen. IMPRESSION: Multilevel degenerative changes in the lumbar spine. There is a large osteophyte to the left at the L1-2 disc level which corresponds to the increased radiotracer uptake seen on the nuclear medicine ex amination from 06/07/2021. DATA REPOSITORY: RADIATION DOSE DELIVERED:
--- NOTE | 2021-06-09 08:45 | DI.RAD_ITS ---
Exam(s) XR HIP RT COMPLETE AP PELVIS EXAM: XR HIP RT COMPLETE AP PELVIS CLINICAL HISTORY: F/U ABNL BONE SCAN, PROSTATE CA,C61. TECHNIQUE: 2D digital imaging was performed. COMPARISON: NM NM BONE SCAN WHOLE BODY GRP from 06/07/2021 NM NM BONE SCAN WHOLE BODY GRP from 06/07/2021 Recent nuclear bone scan performed 06/07/2021 was reviewed FINDINGS: No evidence of fracture. No obvious osseous lesions. Focus of uptake in the superior aspect of the right hip acetabular region on nuclear bone scan appears to correspond to degenerative subarticular c yst at this level. IMPRESSION: DATA REPOSITORY: RADIATION DOSE DELIVERED:
== END 2021-06-09 04:18 ==
LOC: DI 03:58
PROVIDERS: PCP Family Medicine; Visit Provider Urology
DX: C61 Malignant neoplasm of prostate (principal); M47.816 Spondylosis without myelopathy or radiculopathy, lumbar region; M25.78 Osteophyte, vertebrae; M85.68 Other cyst of bone, other site
CPT/HCPCS: 96402; 99213; 72110; 73502; J9217

== ENCOUNTER → 2021-07-12 09:51 | Outpatient (BNVA) | payer MEDICARE, SELFPAY | PROVIDERS: PCP Family Medicine; Referring Provider Family Medicine; Visit Provider Nurse Practitioner Gerontology | DX: C61 Malignant neoplasm of prostate (principal) | CPT/HCPCS: 96402; J9217 ==

== ENCOUNTER → 2021-10-16 09:51 | Outpatient (BNVA) | payer MEDICARE, SELFPAY | PROVIDERS: PCP Family Medicine; Referring Provider Family Medicine; Visit Provider Nurse Practitioner Gerontology | DX: C61 Malignant neoplasm of prostate (principal) | CPT/HCPCS: 96402; J9217 ==

== ENCOUNTER 2021-12-01 01:51 | Outpatient (CLI) | payer MEDICARE, SELFPAY ==
[2021-12-01 10:28] LABS: ALT 45 U/L (16-63); AST 37 U/L (15-37); Albumin 3.9 g/dL (3.4-5.0); Alkaline Phosphatase 60 U/L (46-116); Anion Gap 7.9 mmol/L (3-11); BUN 23 mg/dL (7-18); Bilirubin, Total 0.6 mg/dL (0.2-1.0); CO2 28.1 mmol/L (21.0-32.0); CREATININE 1.3 mg/dL (0.70-1.30); Calculated LDL 76 mg/dL (<100); Chloride 104 mmol/L (98-107); Cholesterol 151 mg/dL (<200); Estimated GFR 53.39 (mL/min/1.73m2); Glucose 89 mg/dL (74-106); HDL Cholesterol 48 mg/dL (40-60); Potassium 4.2 mmol/L (3.5-5.1); Sodium 140 mmol/L (136-145); Total Protein 7.5 g/dL (6.4-8.2); Triglyceride 135 mg/dL (<150)
== END 2021-12-01 01:52 | disposition home or self-care (01) ==
LOC: LBO 01:51
PROVIDERS: PCP Family Medicine; Visit Provider Family Medicine
DX: I25.10 Atherosclerotic heart disease of native coronary artery without angina pectoris (principal)
CPT/HCPCS: 36415; 80053; 80061

== ENCOUNTER → 2022-01-18 11:57 | Outpatient (BNVA) | payer MEDICARE, SELFPAY | PROVIDERS: PCP Family Medicine; Visit Provider Nurse Practitioner Gerontology | DX: R97.20 Elevated prostate specific antigen [PSA] (principal); C61 Malignant neoplasm of prostate | CPT/HCPCS: 36415; 96402; J9217 ==

== ENCOUNTER 2022-01-18 21:01 | Outpatient (REF) | payer MEDICARE, SELFPAY ==
[2022-01-19 12:30] LABS: PSA, Ultrasensitive 0.08 ng/mL (<= 6.5)
[2022-01-22 23:04] LABS: Testosterone, Total <7.0 ng/dL (240-950)
== END 2022-01-18 21:02 | disposition home or self-care (01) ==
LOC: LBN 21:01
PROVIDERS: PCP Family Medicine; Visit Provider Nurse Practitioner Gerontology
DX: C61 Malignant neoplasm of prostate (principal); R97.20 Elevated prostate specific antigen [PSA]
CPT/HCPCS: 84153; 84403

== ENCOUNTER → 2022-04-19 15:17 | Outpatient (BNVA) | payer MEDICARE, SELFPAY | PROVIDERS: PCP Family Medicine; Visit Provider Nurse Practitioner Gerontology | DX: C61 Malignant neoplasm of prostate (principal); R97.20 Elevated prostate specific antigen [PSA] | CPT/HCPCS: 36415; 96402; J9217 ==

== ENCOUNTER 2022-04-19 17:07 | Outpatient (REF) | payer MEDICARE, SELFPAY ==
[2022-04-21 12:47] LABS: PSA, Ultrasensitive 0.04 ng/mL (<= 6.5)
[2022-04-25 15:40] LABS: Testosterone, Total <7.0 ng/dL (240-950)
== END 2022-04-19 17:08 | disposition home or self-care (01) ==
LOC: LBN 17:07
PROVIDERS: PCP Family Medicine; Visit Provider Nurse Practitioner Gerontology
DX: C61 Malignant neoplasm of prostate (principal); R97.20 Elevated prostate specific antigen [PSA]
CPT/HCPCS: 84153; 84403

== ENCOUNTER → 2022-07-23 08:43 | Outpatient (BNVA) | payer MEDICARE, SELFPAY | PROVIDERS: PCP Family Medicine; Referring Provider Family Medicine; Visit Provider Nurse Practitioner Gerontology | DX: C61 Malignant neoplasm of prostate (principal); R97.20 Elevated prostate specific antigen [PSA] | CPT/HCPCS: 36415; 96402; J9217 ==

== ENCOUNTER 2022-07-23 14:00 | Outpatient (REF) | payer MEDICARE, SELFPAY ==
[2022-07-25 12:37] LABS: PSA, Ultrasensitive 0.03 ng/mL (<= 6.5)
[2022-07-28 17:42] LABS: Testosterone, Total <7.0 ng/dL (240-950)
== END 2022-07-23 14:01 | disposition home or self-care (01) ==
LOC: LBN 14:00
PROVIDERS: PCP Family Medicine; Visit Provider Nurse Practitioner Gerontology
DX: C61 Malignant neoplasm of prostate (principal); R97.20 Elevated prostate specific antigen [PSA]
CPT/HCPCS: 84153; 84403

== ENCOUNTER 2022-10-23 15:28 | Outpatient (CLI) | payer MEDICARE, SELFPAY | END 2022-10-23 15:29 | disposition home or self-care (01) | LOC: LBO 15:38 | PROVIDERS: PCP Family Medicine; Visit Provider Nurse Practitioner Gerontology | DX: C61 Malignant neoplasm of prostate (principal) | CPT/HCPCS: 36415 ==

== ENCOUNTER 2022-10-23 15:50 | Outpatient (REF) | payer MEDICARE, SELFPAY ==
[2022-10-25 19:46] LABS: PSA, Ultrasensitive 0.02 ng/mL (<= 6.5)
[2022-10-29 23:55] LABS: Testosterone, Total <7.0 ng/dL (240-950)
== END 2022-10-23 15:51 | disposition home or self-care (01) ==
LOC: LBN 15:50
PROVIDERS: PCP Family Medicine; Visit Provider Nurse Practitioner Gerontology
DX: C61 Malignant neoplasm of prostate (principal)
CPT/HCPCS: 84153; 84403

== ENCOUNTER 2022-12-03 03:51 | Outpatient (CLI) | payer MEDICARE, SELFPAY ==
[2022-12-03 11:49] LABS: ALT 23 U/L (16-63); AST 22 U/L (15-37); Albumin 3.6 g/dL (3.4-5.0); Alkaline Phosphatase 69 U/L (46-116); Anion Gap 6.4 mmol/L (3-11); BUN 32 mg/dL (7-18); Bilirubin, Total 0.3 mg/dL (0.2-1.0); CO2 28.6 mmol/L (21.0-32.0); CREATININE 1.4 mg/dL (0.70-1.30); Calcium 9.4 mg/dL (8.5-10.1); Calculated LDL 72 mg/dL (<100); Chloride 103 mmol/L (98-107); Cholesterol 158 mg/dL (<200); Estimated GFR 51.13 (mL/min/1.73m2); Glucose 103 mg/dL (74-106); HDL Cholesterol 46 mg/dL (40-60); Potassium 4.3 mmol/L (3.5-5.1); Sodium 138 mmol/L (136-145); Total Protein 7.9 g/dL (6.4-8.2); Triglyceride 202 mg/dL (<150)
== END 2022-12-03 03:52 | disposition home or self-care (01) ==
PROVIDERS: PCP Family Medicine; Visit Provider Family Medicine
DX: E78.5 Hyperlipidemia, unspecified (principal); I25.10 Atherosclerotic heart disease of native coronary artery without angina pectoris
CPT/HCPCS: 36415; 80053; 80061

== ENCOUNTER → 2023-01-28 13:56 | Outpatient (BNVA) | payer MEDICARE, SELFPAY | PROVIDERS: PCP Family Medicine; Referring Provider Family Medicine; Visit Provider Nurse Practitioner Gerontology | DX: C61 Malignant neoplasm of prostate (principal) | CPT/HCPCS: 36415; 99213 ==

== ENCOUNTER 2023-01-28 14:43 | Outpatient (REF) | payer MEDICARE, SELFPAY ==
[2023-01-30 14:15] LABS: PSA, Ultrasensitive <0.01 ng/mL (<= 6.5)
[2023-02-01 13:13] LABS: Testosterone, Total <7.0 ng/dL (240-950)
== END 2023-01-28 14:44 | disposition home or self-care (01) ==
LOC: LBN 14:43
PROVIDERS: PCP Family Medicine; Visit Provider Nurse Practitioner Gerontology
DX: C61 Malignant neoplasm of prostate (principal)
CPT/HCPCS: 84153; 84403

== ENCOUNTER 2023-06-27 01:17 | Outpatient (CLI) | payer MEDICARE, SELFPAY ==
[2023-06-27 11:39] LABS: ALT 22 U/L (16-63); AST 20 U/L (15-37); Albumin 3.6 g/dL (3.4-5.0); Alkaline Phosphatase 73 U/L (46-116); Anion Gap 10.3 mmol/L (3-11); BUN 28 mg/dL (7-18); Bilirubin, Total 0.4 mg/dL (0.2-1.0); CO2 24.7 mmol/L (21.0-32.0); CREATININE 1.4 mg/dL (0.70-1.30); Calcium 9.7 mg/dL (8.5-10.1); Chloride 104 mmol/L (98-107); Estimated GFR 50.81 (mL/min/1.73m2); Glucose 94 mg/dL (74-106); Potassium 4.2 mmol/L (3.5-5.1); Sodium 139 mmol/L (136-145); Total Protein 8.5 g/dL (6.4-8.2)
[2023-06-28 18:33] LABS: PSA, Ultrasensitive 0.11 ng/mL (<= 7.2)
[2023-07-01 16:36] LABS: Testosterone, Total 296 ng/dL (240-950)
== END 2023-06-27 01:18 | disposition home or self-care (01) ==
LOC: LBO 01:17
PROVIDERS: PCP Family Medicine; Visit Provider Nurse Practitioner Gerontology
DX: I10 Essential (primary) hypertension (principal); C61 Malignant neoplasm of prostate
CPT/HCPCS: 36415; 80053; 84153; 84403

== ENCOUNTER → 2023-07-09 07:42 | Outpatient (BNVA) | payer MEDICARE, SELFPAY | PROVIDERS: PCP Family Medicine; Referring Provider Family Medicine; Visit Provider Nurse Practitioner Gerontology | DX: C61 Malignant neoplasm of prostate (principal); R97.20 Elevated prostate specific antigen [PSA] | CPT/HCPCS: 99442 ==

== ENCOUNTER 2023-10-01 04:44 | Outpatient (CLI) | payer MEDICARE, SELFPAY ==
[2023-10-02 18:38] LABS: PSA, Ultrasensitive 0.08 ng/mL (<= 7.2)
[2023-10-04 00:08] LABS: Testosterone, Total 298 ng/dL (240-950)
== END 2023-10-01 04:45 | disposition home or self-care (01) ==
LOC: LBO 04:44
PROVIDERS: PCP Family Medicine; Visit Provider Nurse Practitioner Gerontology
DX: C61 Malignant neoplasm of prostate (principal); R97.20 Elevated prostate specific antigen [PSA]
CPT/HCPCS: 36415; 84153; 84403

== ENCOUNTER 2024-03-05 00:55 | Outpatient (CLI) | payer MEDICARE, SELFPAY ==
[2024-03-05 09:59] LABS: ALT 24 U/L (16-63); AST 25 U/L (15-37); Alkaline Phosphatase 71 U/L (46-116); Anion Gap 9.6 mmol/L (3-11); BUN 29 mg/dL (7-18); Bilirubin, Total 0.63 mg/dL (0.2-1.0); CO2 26.4 mmol/L (21.0-32.0); CREATININE 1.6 mg/dL (0.70-1.30); Calcium 9.4 mg/dL (8.5-10.1); Calculated LDL 68 mg/dL (<100); Chloride 104 mmol/L (98-107); Cholesterol 133 mg/dL (<200); Estimated GFR 43.02 (mL/min/1.73m2); Glucose 102 mg/dL (74-106); HDL Cholesterol 49 mg/dL (40-60); Potassium 4.6 mmol/L (3.5-5.1); Sodium 140 mmol/L (136-145); Total Protein 8.7 g/dL (6.4-8.2); Triglyceride 84 mg/dL (<150)
[2024-03-06 19:30] LABS: PSA, Ultrasensitive 0.14 ng/mL (<= 7.2)
[2024-03-08 17:11] LABS: Testosterone, Total 357 ng/dL (240-950)
== END 2024-03-05 00:56 | disposition home or self-care (01) ==
PROVIDERS: Nurse Practitioner Gerontology; PCP Family Medicine; Visit Provider Family Medicine
DX: I10 Essential (primary) hypertension (principal); C61 Malignant neoplasm of prostate
CPT/HCPCS: 36415; 80053; 80061; 84153; 84403

== ENCOUNTER 2024-07-17 02:28 | Outpatient (CLI) | payer MEDICARE, SELFPAY ==
[2024-07-17 11:18] LABS: ALT 21 U/L (16-63); AST 22 U/L (15-37); Albumin 3.5 g/dL (3.4-5.0); Alkaline Phosphatase 75 U/L (46-116); Anion Gap 7.6 mmol/L (3-11); BUN 29 mg/dL (7-18); CO2 28.4 mmol/L (21.0-32.0); CREATININE 1.5 mg/dL (0.70-1.30); Calcium 9.2 mg/dL (8.5-10.1); Chloride 108 mmol/L (98-107); Estimated GFR 46.48 (mL/min/1.73m2); Glucose 83 mg/dL (74-106); Potassium 4.3 mmol/L (3.5-5.1); Sodium 144 mmol/L (136-145); Total Protein 7.7 g/dL (6.4-8.2)
== END 2024-07-17 02:29 | disposition home or self-care (01) ==
PROVIDERS: PCP Family Medicine; Visit Provider Family Medicine
DX: I10 Essential (primary) hypertension (principal)
CPT/HCPCS: 36415; 80053

== ENCOUNTER 2024-08-17 12:12 | Observation (INO) | payer MEDICARE, SELFPAY ==
[2024-08-17] VITALS (52 sets, daily range): BP systolic 126–190; BP diastolic 46–128; PULSE 48–62; RESP 7–17; TEMP 36.3–37.5; O2SAT 96–100
--- NOTE | 2024-08-17 12:15 | RT.EKG_ITS ---
APPROVED REPORT Exam: Resting ECG Reason for Exam: Left arm pain, past history of stents Patient Location: E HR:53 bpm ECG Measurements Heart Rate 53 AXIS OH 148 P 69 QRSd 156 QRS 91 QT 450 T -20 QTc 422 Conclusion Sinus bradycardia...rate< 60 RBBB and LPFB...QRSd >120mS, axis(90,210) Inferior infarct, age indeterminate...Q>35mS, T neg, II III aVF Physician: no stemi, S1Q3T3 is unchanged from prior ekg
[2024-08-17 12:51] LABS: Lactate 0.7 mmol/L (0.6-1.4)
[2024-08-17 13:03] LABS: Abs Immature Grans 0.02 10^3/uL (0.0-0.06); Absolute Basophil Count 0.04 10^3/uL (0.0-0.2); Absolute Eosinophil Count 0.18 10^3/uL (0.0-0.7); Absolute Monocyte Count 0.74 10^3/uL (0.1-0.8); Absolute Neutrophil Count 3.61 10^3/uL (1.2-6.7); Basophils % 0.7 %; HCT 42.3 % (40.0-50.0); HGB 13.6 g/dL (13.5-17.5); Immature Grans % 0.3 %; Lymphocytes % 23.4 %; MCH 30.6 pg (27.0-33.0); MCHC 32.2 % (32.0-36.0); MCV 95 fL (80-95); MPV 10.4 fL (8.0-11.0); Monocytes % 12.4 %; Neutrophils % 60.2 %; Platelet Count 174 10^3/uL (130-400); RBC 4.44 10^6/uL (4.36-5.78); RDW-SD 46.1 fL; WBC 5.99 10^3/uL (4.4-10.8)
[2024-08-17 13:11] LABS: PTT Activated 24.6 sec (23.6-32.8)
[2024-08-17 13:13] LABS: ALT 25 U/L (16-63); AST 24 U/L (15-37); Albumin 4.3 g/dL (3.4-5.0); Alkaline Phosphatase 124 U/L (46-116); Anion Gap 12.2 mmol/L (3-11); BUN 29 mg/dL (7-18); Bilirubin, Total 0.36 mg/dL (0.2-1.0); CO2 24.8 mmol/L (21.0-32.0); CREATININE 1.5 mg/dL (0.70-1.30); Calcium 9.5 mg/dL (8.5-10.1); Chloride 104 mmol/L (98-107); Estimated GFR 46.48 (mL/min/1.73m2); Glucose 95 mg/dL (74-106); Potassium 4.4 mmol/L (3.5-5.1); Sodium 141 mmol/L (136-145); Total Protein 9.3 g/dL (6.4-8.2); Troponin I 16 ng/L (<or=76)
--- NOTE | 2024-08-17 13:13 | ED.GENADUL_ITS ---
Discharge Plan Disposition Patient Disposition: Admit to [facility] Condition: Good Discharge Details Clinical Impression: Arm pain, left, Elevated troponin level Primary Care Provider: Juana Ibanez ED Provider: Aristides Ash Home Meds and New Rx's Prescriptions: No Action aspirin [Aspirin Childrens] 81 mg tablet,chewable 81 mg PO DAILY coenzyme Q10 [CoQ-10] 100 mg capsule 100 mg PO DAILY omega-3 fatty acids 1,000 mg capsule 1,000 mg PO DAILY Patient Comments: 8 pt states he takes an [place] but unsure which one.HE atorvastatin 10 mg tablet 10 mg PO DAILY Qty: 90 4RF multivitamin [Daily Multiple] 1 EACH tablet 1 ea PO DAILY Patient Comments: Liquid mixture~ aj ibuprofen 600 mg tablet 600 mg PO TID PRN (Reason: pain) Qty: 60 2RF amlodipine 10 mg tablet 10 mg PO DAILY Qty: 90 6RF lisinopril 40 mg tablet 40 mg PO DAILY Qty: 90 4RF HPI General Date/Time Provider Initiated Documentation: 08/17/24 12:27 . HPI Narrative: This is an 79-year-old male with a past medical history of prostate cancer, hypertension, high cholesterol, previous cardiac disease (whom the patient reports he has had a stent at [facility] in the distant past which cannot be corroborated with records) who presents today for evaluation of left arm pain. Patient states that for the last few weeks he has noticed intermittent left arm achiness when he would go out on walks, particularly when there was a mild to moderate grade in the hill. He denies any chest pain, chest tightness, or significant shortness of breath. He states that he would have an achiness in his mid arm which was atypical. He states that he had this in the distant past years ago around 2001 and that is when he had some stents. He denies any fever or chills. No cough. No pleuritic chest pain. He denies any vomiting diarrhea or syncope. No other complaints at this time. He does not smoke. No other modifying factors. He states that when he does stop and rest the symptoms usually go away within about 30 minutes. He does not have any pain when he moves his arm in general, and when he exerts himself just using his arms he also does not have significant discomfort. Related Data Home Medications ?Medication ?Instructions ?Recorded ?Confirmed multivitamin (Daily Multiple 1 ea PO DAILY 10/11/16 08/17/24 tablet) aspirin 81 mg chewable tablet 81 mg PO DAILY 12/23/18 08/17/24 (Aspirin Childrens) coenzyme Q10 100 mg capsule 100 mg PO DAILY 12/23/18 08/17/24 (CoQ-10) omega-3 fatty acids 1,000 mg 1,000 mg PO DAILY 04/17/19 08/17/24 capsule ibuprofen 600 mg tablet 600 mg PO TID PRN pain #60 tabs 05/09/22 08/17/24 amlodipine 10 mg tablet 10 mg PO DAILY #90 tabs 09/17/23 08/17/24 lisinopril 40 mg tablet 40 mg PO DAILY #90 tab-caps 09/17/23 08/17/24 atorvastatin 10 mg tablet 10 mg PO DAILY #90 tabs 01/13/24 08/17/24 Previous Rx's ?Medication ?Instructions ?Recorded ibuprofen 600 mg tablet 600 mg PO TID PRN pain #60 tabs 05/09/22 amlodipine 10 mg tablet 10 mg PO DAILY #90 tabs 09/17/23 lisinopril 40 mg tablet 40 mg PO DAILY #90 tab-caps 09/17/23 atorvastatin 10 mg tablet 10 mg PO DAILY #90 tabs 01/13/24 Allergies Allergy/AdvReac Type Severity Reaction Status Date / Time No Known Allergies Allergy Verified 08/17/24 12:20 General Stated Complaint: GenMedical SUSANA: 3 Review of Systems All systems reviewed & are unremarkable except as noted in HPI and below Exam Narrative Exam Narrative: 1.Const: Well-nourished, Well-developed, appearing stated age 2.Eyes: PERRL, no conjunctival injection, and symmetrical lids. 3.ENT: Atraumatic external nose and ears. Moist MM. Neck: Symmetric, trachea midline, No thyromegaly. 4.CVS: +S1/S2, Peripheral pulses 2+ and equal in all extremities. Brisk capillary refill in all extremities. Radial pulses +2 bilaterally. Capillary refill less than 1 second 5.RESP: Unlabored respiratory effort. Clear to auscultation bilaterally. No wheezes rales or rhonchi 6.GI: Soft, Nontender/Nondistended, No hepatosplenomegaly. No guarding or rebou nd. 7.MSK: Normocephalic/Atraumatic, Extremities w/o deformity or ttp No cyanosis or clubbing, Normal movement of all extremities 8.Skin: Warm, Dry. No rashes or lesions. 9.Neuro: weekday babysitter II-XII grossly intact. Sensation grossly intact, no focal neurologic deficits. 10.Psych: (AAO) x3. Appropriate mood and affect Course Vital Signs Vital signs: Vital Signs Temperature 36.3 C L 08/17/24 12:15 Pulse 56 L 08/17/24 12:15 Respiratory Rate 16 08/17/24 12:15 Blood Pressure 179/83 H 08/17/24 12:15 Pulse Oximetry 98 08/17/24 12:15 Temperature 36.3 C L 08/17/24 12:26 Temperature Source Oral 08/17/24 12:26 Pulse 51 L 08/17/24 13:01 Pulse 59 L 08/17/24 13:10 Respiratory Rate 12 08/17/24 13:10 Respiratory Effort Normal, Non-Labored 08/17/24 12:25 Blood Pressure 151/55 H 08/17/24 13:01 Blood Pressure Mean 90 08/17/24 13:01 Blood Pressure Position Sitting 08/17/24 12:26 Pulse Oximetry 98 08/17/24 13:10 Oxygen Delivery Method Room Air 08/17/24 12:26 Oxygen Flow Rate 0 08/17/24 12:26 Pain Level 3 08/17/24 12:26 Lab/Test Results Lab/Test Results: Laboratory Tests Range/Units 08/17/24 12:45 WBC (4.4-10.8) 10^3/uL 5.99 RBC (4.36-5.78) 10^6/uL 4.44 Hgb (13.5-17.5) g/dL 13.6 Hct (40.0-50.0) % 42.3 MCV (80-95) fL 95 MCH (27.0-33.0) pg 30.6 MCHC (32.0-36.0) % 32.2 RDW (11.8-14.1) % 13.0 Plt Count (130-400) 10^3/uL 174 MPV (8.0-11.0) fL 10.4 Immature Gran % % 0.3 Neutrophils % % 60.2 Lymphocytes % % 23.4 Monocytes % % 12.4 Eosinophils % % 3.0 Basophils % % 0.7 Nucleated RBC % (0.0-0.3) % 0.0 Absolute Neutrophils (1.2-6.7) 10^3/uL 3.61 Absolute Lymphocytes (1.2-3.4) 10^3/uL 1.40 Absolute Monocytes (0.1-0.8) 10^3/uL 0.74 Absolute Eosinophils (0.0-0.7) 10^3/uL 0.18 Absolute Basophils (0.0-0.2) 10^3/uL 0.04 VBG Lactate (0.6-1.4) mmol/L 0.7 Medical Decision Making This is an 79-year-old male with a past medical history of prostate cancer, hypertension, high cholesterol, previous cardiac disease (whom the patient reports he has had a stent at [facility] in the distant past which cannot be corroborated with records) who presents today for evaluation of left arm pain. Patient states that for the last few weeks he has noticed intermittent left arm achiness when he would go out on walks, particularly when there was a mild to moderate grade in the hill. He denies any chest pain, chest tightness, or significant shortness of breath. He states that he would have an achiness in his mid arm which was atypical. He states that he had this in the distant past years ago around 2001 and that is when he had some stents. He denies any fever or chills. No cough. No pleuritic chest pain. He denies any vomiting diarrhea or syncope. No other complaints at this time. He does not smoke. No other modifying factors. He states that when he does stop and rest the symptoms usually go away within about 30 minutes. He does not have any pain when he moves his arm in general, and when he exerts himself just using his arms he also does not have significant discomfort. Exam demonstrates well-appearing male, normal radial pulses bilaterally, no bruit or thrills. Good capillary refill. No other abnormalities on exam. Vital signs stable aside from mild hypertension. No symptoms to suggest arterial compromise. Differential includes anginal equivalent with his left arm pain, subclavian steal syndrome less likely. Musculoskeletal spasm on the differential as well. Will evaluate for these etiologies, monitor closely and reassess. 3 PM Laboratory workup has returned, no white count bandemia or left shift. Lactate normal suggesting no evidence of ischemia. BUN 29 with creatinine of 1.5, this is at the patient's baseline. Initial troponin is 16, repeat troponin is 20. EKG shows no evidence of STEMI or acute change. CT angiography of the chest, aorta, subclavian arteries, and proximal arteries of the left upper extremity. No evidence of acute vascular compromise. Patient remains pain-free here. With the slight increase in his troponins, we will get a third 3-hour troponin as well. Will continue to monitor closely. If he continues to demonstrate an uptrend I do feel that he may be a good candidate for admission and stress testing. If it otherwise remained stable he would be a candidate for nonemergent outpatient evaluation. 5:02 PM Patient's repeat troponin has continued to increase. Troponin is no 24, per high-sensitivity protocol this is a concerning uptrend. While the patient is certainly not having ACS, I do worry about unstable angina. We will reach out to the hospitalist for admission for stress testing. Full dose aspirin will be administered. Discussed the case with Dr. Vallecillo, he agrees with the assessment and plan. I have extensively reviewed the treatment plan with the patient. I have addressed all patient concerns at this time. I have also discussed the plan with the admitting physician and they agree with the current assessment and plan and have agreed to assume responsibility for the patient. All parties demonstrate verbal understanding and agreement with our assessment and plan at this time. The documentation in this chart was dictated using [employer] dictation software. Please excuse any dictation errors. FINDINGS: Pulmonary Arteries: No evidence of filling defect to suggest pulmonary emboli. Mediastinum and Laila: No dominant adenopathy or fluid collection. Pulmonary parenchyma: No consolidation or dominant measurable mass. Mild fibrotic changes. Pleura: No effusion or pneumothorax. Heart: The heart is mildly dilated, left atrium and left ventricle. Moderate coronary artery calcifications are seen. Calcification at the aortic valve. Aorta and branch vessel: Thoracic aorta non-dilated. No dissection. Ashp-ee-[id number] atherosclerotic changes of the aorta. Mild calcification noted at the origin of the left subclavian artery but no narrowing of the diameter. Mild calcification at the origin of the left common carotid artery. Both vertebral arteries are patent. Right vertebral artery is dominant. Mild calcification at the origin of the innominate artery. Upper abdomen: No acute findings. Status post cholecystectomy. Calcifications at the origins of the celiac axis, SMA and renal arteries but no significant stenosis. Bones: Unremarkable for age. Tubes, Catheters, and Lines: None Soft tissues: Unremarkable. IMPRESSION: No evidence of aortic dissection. No significant stenosis of the left subclavian artery. 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 LCX stent placed; MPI in 2004=sm fixed inf. wall defect; neg. 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) Renal insufficiency (Chronic) Gout (Chronic) Medical History Complete tear of right rotator cuff Femoroacetabular impingement of left hip Biceps tendinitis of right shoulder Right rotator cuff tear Right hip pain Prepatellar bursitis of right knee Carotid artery stenosis Gastric motor function disorder Tobacco use disorder Carpal tunnel syndrome of right wrist Carpal tunnel syndrome of left wrist Pain of left great toe (12/24/17) Surgical History History of carpal tunnel release Left History of intravascular stent placement Status post cholecystectomy left heart cardiac cath Stent placement x 3 Skin Cancer Removal 1/3/18; SQUAMOUS CELL CARCINOMA (RIGHT HELIX) Colonoscopy - MAC (~1999) neg Cholecystectomy Family History Mother , age 98 Heart disease Melanoma Father , AGE 71 Stroke Stomach cancer Sister No problems noted. Sister No problems noted. Social History Smoking/Tobacco Use Status: Former Tobacco Use tobacco type: cigarettes and pipe Quit Date: 09/16/96 Tobacco: How many years used: 12 Second Hand Exposure: Yes Smoking risk assessment performed?: Yes Alcohol Intake: current Alcohol Intake frequency: a few times a week Alcohol type: beer and wine Drug use: Occasionally Substance use type: former substance user and marijuana Caregiver/Support person: No Household members: spouse Housing: house Communication Needs: Hard of Hearing Do you need help understanding health information?: Never Pets and animals: Yes Pets and animals: cat(s), dog(s) and horse(s) Sexually active: No Do you think of yourself as: straight/heterosexual Current gender identity: male What is your relationship status?: How often do you talk on the phone with friends or family?: once per week How often do you get together with friends or relatives?: decline to answer How often do you attend yazidi or sabianist services?: decline to answer Do you belong to any clubs or organized social groups?: no Panel score (0-1 are the most socially isolated patients): 1 What type of physical activity do you participate in: aerobic, weight lifting and yoga Duration: 15-30 minutes/day Frequency: 3-4 times per week Sophia/Samaritan: No preference Special sophia needs: No Seatbelt use: always Drive intox or ride w/intox lifter/driver: No Do you feel safe at home: Yes Do you feel safe in your relationship?: Yes
[2024-08-17] MEDS: Omnipaque 350 MG/ML 100 ML BTL 75 ML IJ (13:37)
[2024-08-17] MEDS: Normal Saline - Diluent 50 ML VIAL IJ (13:39)
--- NOTE | 2024-08-17 13:45 | DI.CT_ITS ---
Exam(s) CT THORAX CTA EXAM: CT THORAX CTA CLINICAL HISTORY: CP left shoulder pain. Eval for dissect/subclav. TECHNIQUE: Imaging Protocol: Axial CT angiography was performed with multi-slice acquisition and mu lti-planar reconstructions as well as axial, coronal and sagittal MIP reconstructions. Computer aided detection (CAD) was utilized. CONTRAST MATERIAL: Intravenous: Omnipaque 350 Contrast volume:75 ml COMPARISON: No exams were available for comparison FINDINGS: Pulmonary Arteries: No evidence of filling defect to suggest pulmonary emboli. Mediastinum and Laila: No dominant adenopathy or fluid collection. Pulmonary parenchyma: No consolidation or dominant measurable mass. Mild fibrotic changes. Pleura: No effusion or pneumothorax. Heart: The heart is mildly dilated, left atrium and left ventricle. Moderate coronary artery calcifi cations are seen. Calcification at the aortic valve. Aorta and branch vessel: Thoracic aorta non-dilated. No dissection. Rmup-ah-mrkqrvnt atherosclero tic changes of the aorta. Mild calcification noted at the origin of the left subclavian artery but n o narrowing of the diameter. Mild calcification at the origin of the left common carotid artery. Con th vertebral arteries are patent. Right vertebral artery is dominant. Mild calcification at the alicia gin of the innominate artery. Upper abdomen: No acute findings. Status post cholecystectomy. Calcifications at the origins of th e celiac axis, SMA and renal arteries but no significant stenosis. Bones: Unremarkable for age. Tubes, Catheters, and Lines: None Soft tissues: Unremarkable. IMPRESSION: No evidence of aortic dissection. No significant stenosis of the left subclavian artery. RADIATION DOSE DELIVERED: 191.85mGy.cm Total DLP DATA REPOSITORY: All CT scans at this facility are submitted to the National Radiology Data Registry (NRDR) Dose Index Registry (DIR) with the [employer] (ACR). RADIATION OPTIMIZATION: All CT scans at this facility use at least one of these dose optimization te chniques: automated exposure control; mA and/or kV adjustment per patient size (includes targeted exa ms where dose is matched to clinical indication); or iterative reconstruction.
[2024-08-17 14:52] LABS: Troponin I 20 ng/L (<or=76)
[2024-08-17 16:17] LABS: Troponin I 24 ng/L (<or=76)
[2024-08-17] MEDS: Aspirin 325 MG TAB PO (16:53)
--- NOTE | 2024-08-17 17:25 | HPE_ITS ---
Date of service: 08/17/24 Time of Service: 17:25 Assessment and Plan Assessment and plan (1) Hyperlipidemia: Status: Chronic Assessment and plan: Continue with medical management I will check a lipid profile in the morning due to his presentation l (2) Essential hypertension: Status: Chronic Assessment and plan: Restart home meds monitor for optimization (3) ASCVD (arteriosclerotic cardiovascular disease): Status: Chronic Assessment and plan: As mentioned above patient was admitted for an anginal equivalent. Patient was given 4 baby in the ED. Patient was without complaint when I examined him. Check serial EKGs and enzymes and consult cardiology in AM. Obviously if there is a significant change in his EKGs or serious bump in his enzymes we will have to reconsider transfer to higher level of care with interventional cardiology (4) Abnormal auditory perception: Status: Chronic Assessment and plan: Patient does have the hearing aids in place (5) Elevated PSA: Status: Acute Assessment and plan: Patient does have a history of prostate cancer and had radiation therapy. History of Present Illness History of Present Illness Chief Complaint: My left arm hurts when I walk N arrative: This is an 79-year-old gentleman who has a history of coronary artery disease with stent appointment in approximately 2001 Patient presents to the ED today for an anginal equivalent. Patient states that whenever he walks or exercises he develops left arm pain and this is what happened in 2001. Patient denies any chest pain shortness of breath diaphoresis jaw pain and states that stopping exercising makes his pain go away. Patient does not smoke and drinks approximately 2 glasses of wine a week. In reviewing his chart he appeared to have the same sort of symptomology in 2011 and at that time he was discharged with close follow-up. I did ask the ER doctor Dr. Ash to reach out to her breaker unit assembler Dr. Tellez but her office is already closed. The ER workup indicated an elevating troponin level but still within normal limits. EKG did not show any ST elevation or depression but did show a possible inferior infarct as well as right bundle branch block. Patient will be admitted for serial EKGs and enzymes and potential cardiology consult in the a.m. 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 LCX stent placed; MPI in 2005=sm fixed inf. wall defect; neg. 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) Renal insufficiency (Chronic) Gout (Chronic) Medical History Complete tear of right rotator cuff Femoroacetabular impingement of left hip Biceps tendinitis of right shoulder Right rotator cuff tear Right hip pain Prepatellar bursitis of right knee Carotid artery stenosis Gastric motor function disorder Tobacco use disorder Carpal tunnel syndrome of right wrist Carpal tunnel syndrome of left wrist Pain of left great toe (12/24/17) Surgical History History of carpal tunnel release Left History of intravascular stent placement Status post cholecystectomy left heart cardiac cath Stent placement x 3 Skin Cancer Removal 09/18/17; SQUAMOUS CELL CARCINOMA (RIGHT HELIX) Colonoscopy - MAC (~1999) neg Cholecystectomy Family History Mother , age 98 Heart disease Melanoma Father , AGE 71 Stroke Stomach cancer Sister No problems noted. Sister No problems noted. Social History Smoking/Tobacco Use Status: Former Tobacco Use tobacco type: cigarettes and pipe Quit Date: 09/16/96 Tobacco: How many years used: 12 Second Hand Exposure: Yes Smoking risk assessment performed?: Yes Alcohol Intake: current Alcohol Intake frequency: a few times a week Alcohol type: beer and wine Drug use: Occasionally Substance use type: former substance user and marijuana Caregiver/Support person: No Household members: spouse Housing: house Communication Needs: Hard of Hearing Do you need help understanding health information?: Never Pets and animals: Yes Pets and animals: cat(s), dog(s) and horse(s) Sexually active: No Do you think of yourself as: straight/heterosexual Current gender identity: male What is your relationship status?: How often do you talk on the phone with friends or family?: once per week How often do you get together with friends or relatives?: decline to answer How often do you attend sabianism or sabianism services?: decline to answer Do you belong to any clubs or organized social groups?: no Panel score (0-1 are the most socially isolated patients): 1 What type of physical activity do you participate in: aerobic, weight lifting and yoga Duration: 15-30 minutes/day Frequency: 3-4 times per week Sophia/Presybeterian: No preference Special sophia needs: No Seatbelt use: always Drive intox or ride w/intox bulk delivery driver: No Do you feel safe at home: Yes Do you feel safe in your relationship?: Yes Meds Allergies and Home Medications Allergies Allergy/AdvReac Type Severity Reaction Status Date / Time No Known Allergies Allergy Verified 08/17/24 12:20 Home Medications ?Medication ?Instructions ?Recorded ?Confirmed ?Type multivitamin (Daily Multiple 1 ea PO DAILY 10/11/16 08/17/24 History tablet) aspirin 81 mg chewable tablet 81 mg PO DAILY 12/23/18 08/17/24 History (Aspirin Childrens) coenzyme Q10 100 mg capsule 100 mg PO DAILY 12/23/18 08/17/24 History (CoQ-10) omega-3 fatty acids 1,000 mg 1,000 mg PO DAILY 04/17/19 08/17/24 History capsule ibuprofen 600 mg tablet 600 mg PO TID PRN pain #60 tabs 05/09/22 08/17/24 Rx amlodipine 10 mg tablet 10 mg PO DAILY #90 tabs 09/17/23 08/17/24 Rx lisinopril 40 mg tablet 40 mg PO DAILY #90 tab-caps 09/17/23 08/17/24 Rx atorvastatin 10 mg tablet 10 mg PO DAILY #90 tabs 01/13/24 08/17/24 Rx Exam Narrative Exam Narrative: Head eyes ears nose and throat: Normocephalic atraumatic mucous membranes moist oropharynx clear extract motions are intact Neck: No lymphadenopathy no JVD no thyroid megaly Cardiovascular: No murmur rubs gallops clear to auscultate, regular rate and rhythm Lungs: Clear to auscultation bilaterally with good air exchange no accessory muscle use is noted Abdomen: Soft nontender nondistended bowel sounds active Extremities: No cyanosis clubbing or edema in upper or lower extremities Neurologic: Cranial nerves II through XII intact as tested reflexes in upper lower extremity normal Psych: Alert and oriented x 3 General: Appears stated age no apparent distress responds appropriately to verbal stimuli Results Labs 08/17/24 12:45 08/17/24 12:45 Labs: Laboratory Results - last 24 hr 08/17/24 08/17/24 08/17/24 12:45 13:54 15:54 WBC 5.99 RBC 4.44 Hgb 13.6 Hct 42.3 MCV 95 MCH 30.6 MCHC 32.2 RDW 13.0 Plt Count 174 MPV 10.4 Immature Gran % 0.3 Neutrophils % 60.2 Lymphocytes % 23.4 Monocytes % 12.4 Eosinophils % 3.0 Basophils % 0.7 Nucleated RBC % 0.0 Absolute Neutrophils 3.61 Absolute Lymphocytes 1.40 Absolute Monocytes 0.74 Absolute Eosinophils 0.18 Absolute Basophils 0.04 PT 10.0 INR 1.0 APTT 24.6 VBG Lactate 0.7 Sodium 141 Potassium 4.4 Chloride 104 Carbon Dioxide 24.8 Anion Gap 12.2 H BUN 29 H Creatinine 1.5 H Est GFR (CKD-EPI 2020) 46.48 Glucose 95 Calcium 9.5 Total Bilirubin 0.36 AST 24 ALT 25 Alkaline Phosphatase 124 H Troponin I 16 20 24 Total Protein 9.3 H Albumin 4.3 Last Vital Signs Temp 36.3 C L 08/17/24 12:26 Pulse 50 L 08/17/24 15:01 Resp 14 08/17/24 15:01 BP 153/56 H 08/17/24 15:01 Pulse Ox 100 08/17/24 15:01 Time Spent Time spent with Patient: 40-54 minutes Time was spent: preparing to see the patient(eg.review tests), obtaining and/or reviewing separately otained hiistory, ordering medications,tests, procedures, referring, communicating with other health care transition manager, indepentently interpreting results, counseling the patient and care coordination
--- NOTE | 2024-08-17 17:54 | W.PC.ACHO ---
Registration Status: Primary Language: Preferred Language: ED Information & Data Chief Complaint GenMedical 08/17/24 13:17 Triage Note Pt arrives to ED c/o LT arm 08/17/24 12:15 pain which occurs while he is ambulating; pt states this has been going on for a couple of weeks. Strong LT radial pulse noted. Pt has stents in his LT arm placed in 2004 at [facility] [place] Medical / Surgical History (Last Reviewed 08/17/24 @ 15:54 by Aristides Ash DO) Complete tear of right rotator cuff Femoroacetabular impingement of left hip Biceps tendinitis of right shoulder Right rotator cuff tear Right hip pain Prepatellar bursitis of right knee Carotid artery stenosis Gastric motor function disorder Tobacco use disorder Carpal tunnel syndrome of right wrist Carpal tunnel syndrome of left wrist Pain of left great toe (12/24/17) (Last Reviewed 08/17/24 @ 15:54 by Aristides Ash DO) History of carpal tunnel release History of intravascular stent placement Status post cholecystectomy left heart cardiac cath Stent placement Skin Cancer Removal Colonoscopy - MAC (~1999) Cholecystectomy Most Recent Vital Signs Temperature 36.3 C L 08/17/24 12:26 Temperature Source Oral 08/17/24 12:26 Pulse 50 L 08/17/24 15:01 Pulse 53 L 08/17/24 15:01 Respiratory Rate 14 08/17/24 15:01 Respiratory Effort Normal, Non-Labored 08/17/24 12:25 Blood Pressure 153/56 H 08/17/24 15:01 Blood Pressure Mean 91 08/17/24 15:01 Blood Pressure Position Sitting 08/17/24 12:26 Pulse Oximetry 100 08/17/24 15:01 Oxygen Delivery Method Room Air 08/17/24 12:26 Oxygen Flow Rate 0 08/17/24 12:26 Pain Level 3 08/17/24 12:26 Allergies No Known Allergies Allergy (Verified 08/17/24 12:20) Precautions Isolation Standard precaution 08/17/24 12:25 Active Medications Generic Name Dose Route Start Last Admin Trade Name Freq PRN Reason Stop Dose Admin Iohexol 75 ml 08/17/24 13:45 08/17/24 13:37 Omnipaque 350 Mg/Ml 100 Ml Btl IJ 09/16/24 23:59 75 ml DIRECTED LINNEA Administration Sodium Chloride 50 ml 08/17/24 13:45 08/17/24 13:39 Normal Saline - Diluent 50 Ml Vial IJ 50 ml .FOR DI USE LINNEA Administration IV IV Catheter Type [Right Saline Lock Antecubital] IV Catheter Gauge [Right 18 Antecubital] Diet Orders Category Date Time Status Heart Healthy Eating [DIET] Nutrition 08/18/24 Breakfast Ordered Diagnostics 08/17/24 08/17/24 08/17/24 Range/Units 22:00 20:43 20:40 WBC (4.4-10.8) 10^3/uL RBC (4.36-5.78) 10^6/uL Hgb (13.5-17.5) g/dL Hct (40.0-50.0) % MCV (80-95) fL MCH (27.0-33.0) pg MCHC (32.0-36.0) % RDW (11.8-14.1) % Plt Count (130-400) 10^3/uL MPV (8.0-11.0) fL Immature Gran % % Neutrophils % % Lymphocytes % % Monocytes % % Eosinophils % % Basophils % % Nucleated RBC % (0.0-0.3) % Absolute Neutrophils (1.2-6.7) 10^3/uL Absolute Lymphocytes (1.2-3.4) 10^3/uL Absolute Monocytes (0.1-0.8) 10^3/uL Absolute Eosinophils (0.0-0.7) 10^3/uL Absolute Basophils (0.0-0.2) 10^3/uL PT (9.1-11.1) sec INR (0.9-1.1) APTT (23.6-32.8) sec VBG Lactate (0.6-1.4) mmol/L Sodium (136-145) mmol/L Potassium (3.5-5.1) mmol/L Chloride (98-107) mmol/L Carbon Dioxide (21.0-32.0) mmol/L Anion Gap (3-11) mmol/L BUN (7-18) mg/dL Creatinine (0.70-1.30) mg/dL Est GFR (CKD-EPI 2020) (mL/min/1.73m2) Glucose (74-106) mg/dL Calcium (8.5-10.1) mg/dL Total Bilirubin (0.2-1.0) mg/dL AST (15-37) U/L ALT (16-63) U/L Alkaline Phosphatase (46-116) U/L Troponin I Pending Pending Pending (<or=76) ng/L Total Protein (6.4-8.2) g/dL Albumin (3.4-5.0) g/dL 08/17/24 08/17/24 08/17/24 Range/Units 18:43 18:40 17:43 WBC (4.4-10.8) 10^3/uL RBC (4.36-5.78) 10^6/uL Hgb (13.5-17.5) g/dL Hct (40.0-50.0) % MCV (80-95) fL MCH (27.0-33.0) pg MCHC (32.0-36.0) % RDW (11.8-14.1) % Plt Count (130-400) 10^3/uL MPV (8.0-11.0) fL Immature Gran % % Neutrophils % % Lymphocytes % % Monocytes % % Eosinophils % % Basophils % % Nucleated RBC % (0.0-0.3) % Absolute Neutrophils (1.2-6.7) 10^3/uL Absolute Lymphocytes (1.2-3.4) 10^3/uL Absolute Monocytes (0.1-0.8) 10^3/uL Absolute Eosinophils (0.0-0.7) 10^3/uL Absolute Basophils (0.0-0.2) 10^3/uL PT (9.1-11.1) sec INR (0.9-1.1) APTT (23.6-32.8) sec VBG Lactate (0.6-1.4) mmol/L Sodium (136-145) mmol/L Potassium (3.5-5.1) mmol/L Chloride (98-107) mmol/L Carbon Dioxide (21.0-32.0) mmol/L Anion Gap (3-11) mmol/L BUN (7-18) mg/dL Creatinine (0.70-1.30) mg/dL Est GFR (CKD-EPI 2020) (mL/min/1.73m2) Glucose (74-106) mg/dL Calcium (8.5-10.1) mg/dL Total Bilirubin (0.2-1.0) mg/dL AST (15-37) U/L ALT (16-63) U/L Alkaline Phosphatase (46-116) U/L Troponin I Pending Pending Pending (<or=76) ng/L Total Protein (6.4-8.2) g/dL Albumin (3.4-5.0) g/dL 08/17/24 08/17/24 08/17/24 Range/Units 15:54 13:54 12:45 WBC 5.99 (4.4-10.8) 10^3/uL RBC 4.44 (4.36-5.78) 10^6/uL Hgb 13.6 (13.5-17.5) g/dL Hct 42.3 (40.0-50.0) % MCV 95 (80-95) fL MCH 30.6 (27.0-33.0) pg MCHC 32.2 (32.0-36.0) % RDW 13.0 (11.8-14.1) % Plt Count 174 (130-400) 10^3/uL MPV 10.4 (8.0-11.0) fL Immature Gran % 0.3 % Neutrophils % 60.2 % Lymphocytes % 23.4 % Monocytes % 12.4 % Eosinophils % 3.0 % Basophils % 0.7 % Nucleated RBC % 0.0 (0.0-0.3) % Absolute Neutrophils 3.61 (1.2-6.7) 10^3/uL Absolute Lymphocytes 1.40 (1.2-3.4) 10^3/uL Absolute Monocytes 0.74 (0.1-0.8) 10^3/uL Absolute Eosinophils 0.18 (0.0-0.7) 10^3/uL Absolute Basophils 0.04 (0.0-0.2) 10^3/uL PT 10.0 (9.1-11.1) sec INR 1.0 (0.9-1.1) APTT 24.6 (23.6-32.8) sec VBG Lactate 0.7 (0.6-1.4) mmol/L Sodium 141 (136-145) mmol/L Potassium 4.4 (3.5-5.1) mmol/L Chloride 104 (98-107) mmol/L Carbon Dioxide 24.8 (21.0-32.0) mmol/L Anion Gap 12.2 H (3-11) mmol/L BUN 29 H (7-18) mg/dL Creatinine 1.5 H (0.70-1.30) mg/dL Est GFR (CKD-EPI 2020) 46.48 (mL/min/1.73m2) Glucose 95 (74-106) mg/dL Calcium 9.5 (8.5-10.1) mg/dL Total Bilirubin 0.36 (0.2-1.0) mg/dL AST 24 (15-37) U/L ALT 25 (16-63) U/L Alkaline Phosphatase 124 H (46-116) U/L Troponin I 24 20 16 (<or=76) ng/L Total Protein 9.3 H (6.4-8.2) g/dL Albumin 4.3 (3.4-5.0) g/dL Intake and Output - 24 Hour Total 08/17/24 12:12 thru 08/17/24 12:15 Weight 78.925 kg Falls Risk Assessment History of Falls No History 08/17/24 12:26 Contributing Factors No Factors 08/17/24 12:26 Ambulatory Aids Independent 08/17/24 12:26 Tubes/Lines W/no contributing factors 08/17/24 12:26 Gait Evaluation No gait disturbance 08/17/24 12:26 Cognition No cognitive impairment 08/17/24 12:26 Fall Total Score 10 08/17/24 12:26 Level of Risk Standard/Low Risk 08/17/24 12:26 Problems (Last Reviewed 08/17/24 @ 15:54 by Aristides Ash DO) Elevated PSA (Acute) ASCVD (arteriosclerotic cardiovascular disease) (Chronic) 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 Information / Comments: Report received from: kaiden Sanches RN @[phone] pt going to room 228
[2024-08-17] MEDS: Heparin 5,000 UNITS/ML VIAL 5000 UNITS SC (18:42)
[2024-08-17 19:09] LABS: Troponin I 26 ng/L (<or=76)
[2024-08-17] MEDS: Lisinopril 20 MG TAB 40 MG PO (20:27)
[2024-08-17] MEDS: amLODIPine 10 MG TAB PO (20:29)
[2024-08-17] MEDS: Atorvastatin 10 MG TAB PO (20:30)
[2024-08-17] MEDS: Normal Saline Flush 10 ML SYR (20:32)
[2024-08-17 23:29] LABS: Troponin I 23 ng/L (<or=76)
[2024-08-18] MEDS: Heparin 5,000 UNITS/ML VIAL 5000 UNITS SC ×2 (02:54→09:55)
[2024-08-18 03:01] VITALS: BP 123/51; PULSE 48; RESP 18; TEMP 36.2; O2SAT 96
[2024-08-18 06:48] LABS: Troponin I 20 ng/L (<or=76)
[2024-08-18 07:12] VITALS: BP 124/63; PULSE 54; RESP 18; TEMP 36.8; O2SAT 98
--- NOTE | 2024-08-18 08:00 | RT.EKG_ITS ---
APPROVED REPORT Exam: Resting ECG Reason for Exam: CAD Patient Location: I HR:55 bpm ECG Measurements Heart Rate 55 AXIS WY 245 P 49 QRSd 150 QRS 100 QT 449 T -13 QTc 430 Conclusion Sinus rhythm...normal P axis, V-rate 50- 99 Prolonged WY interval...WY >220, V-rate 50- 90 Right bundle branch block
[2024-08-18] MEDS: Omega-3 Fatty Acids 1000 MG CAP PO (08:47)
[2024-08-18] MEDS: Aspirin 81 MG CHEW PO (08:47)
[2024-08-18] MEDS: Multivitamin TAB 1 TAB PO (08:48)
[2024-08-18] MEDS: Normal Saline Flush 10 ML SYR IVP (08:48)
--- NOTE | 2024-08-18 09:43 | PDOC.CMIN ---
Date of service: 08/18/24 Time of Service: 09:43 Care Management Initial Assmt Functional Status/Living Situation Town of Residence: [place] Resides with: Spouse (Lauren Cerda) Significant Other/Family: Local Natural Supports: Daughter Delmy, Son Deny Employment Status: Retired Medications Medication Management: No Issues/Barriers identified Advance Directives Advance Directives: Do you have an Advance Directive: Y 04/28/19 10:41 AD On File at [facility]: Y 07/18/15 19:00 Date Asked 12/17/16 12/17/16 11:31 AD Date Reviewed 07/03/24 07/03/24 20:54 COLST On File at [facility] COLST Date Scanned Code Status Resuscitation Status Full Code Insurance Coverage/Financial Issues Insurance: Medicare Financial Issues: None identified Care Team Visit Care Team Role Provider Type Juana Ibanez MD, [place] Primary Care Provider [facility] Aristides Ash DO Emergency Provider [facility] STAFF PHYSICIAN Lionel Vallecillo MD Admit Provider 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 LCX stent placed; MPI in 2004=sm fixed inf. wall defect; neg. 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) Renal insufficiency (Chronic) Gout (Chronic) Medical History Complete tear of right rotator cuff Femoroacetabular impingement of left hip Biceps tendinitis of right shoulder Right rotator cuff tear Right hip pain Prepatellar bursitis of right knee Carotid artery stenosis Gastric motor function disorder Tobacco use disorder Carpal tunnel syndrome of right wrist Carpal tunnel syndrome of left wrist Pain of left great toe (12/24/17) Surgical History History of carpal tunnel release Left History of intravascular stent placement Status post cholecystectomy left heart cardiac cath Stent placement x 3 Skin Cancer Removal 09/18/17; SQUAMOUS CELL CARCINOMA (RIGHT HELIX) Colonoscopy - MAC (~1999) neg Cholecystectomy Family History Mother , age 98 Heart disease Melanoma Father , AGE 71 Stroke Stomach cancer Sister No problems noted. Sister No problems noted. Social History Smoking/Tobacco Use Status: Former Tobacco Use tobacco type: cigarettes and pipe Quit Date: 09/16/96 Tobacco: How many years used: 12 Second Hand Exposure: Yes Smoking risk assessment performed?: Yes Alcohol Intake: current Alcohol Intake frequency: a few times a week Alcohol type: beer and wine Drug use: Occasionally Substance use type: former substance user and marijuana Caregiver/Support person: No Household members: spouse Housing: house Communication Needs: Hard of Hearing Do you need help understanding health information?: Never Pets and animals: Yes Pets and animals: cat(s), dog(s) and horse(s) Sexually active: No Do you think of yourself as: straight/heterosexual Current gender identity: male What is your relationship status?: How often do you talk on the phone with friends or family?: once per week How often do you get together with friends or relatives?: decline to answer How often do you attend temple or spiritism services?: decline to answer Do you belong to any clubs or organized social groups?: no Panel score (0-1 are the most socially isolated patients): 1 What type of physical activity do you participate in: aerobic, weight lifting and yoga Duration: 15-30 minutes/day Frequency: 3-4 times per week Sophia/Spiritism: No preference Special sophia needs: No Seatbelt use: always Drive intox or ride w/intox bull driver: No Do you feel safe at home: Yes Do you feel safe in your relationship?: Yes SDOH(Care Management) Screening Will the Patient Participate in the Screening?: Yes Do you worry about having a steady place to live?: no Problems where you live: no known problems In the past 12 months, have you had to go without electric, gas, oil or water in your home?: no Have you or anyone in your house had to go without enough food to eat?: no Has lack of transportation kept you from medical appointments or from doing things needed for daily living?: no Has anyone in your support network made you feel unsafe for any reason?: no
--- NOTE | 2024-08-18 10:36 | W.PM.DS.N ---
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 Patient states that when he had his stents placed in approximately 2001 he had the same presentation. Patient states that the left arm pain gets worse with exercise and stops when he is done exercising. Patient was noted to have mild elevations in his troponins but was never outside of the normal range. Recheck of cardiac enzymes showed values of 20, 23, and 28. Vital signs are otherwise stable. EKGs were not indicative of ST elevation or depression. I did discuss the case with Dr. Tellez of the cardiology service who recommended outpatient cardiac catheterization. It is my feeling as well as Doubts that this is stable angina and certainly will need to be followed up on but not emergently or urgently. Her recommendation is to follow-up in her clinic to set up the cardiac cath. At this time there is no recommendation for a stress test either exercise or chemical. My plan is to discharge the patient today. Home Meds and New Rx's Prescriptions: Continued aspirin [Aspirin Childrens] 81 mg tablet,chewable 81 mg PO DAILY coenzyme Q10 [CoQ-10] 100 mg capsule 100 mg PO DAILY omega-3 fatty acids 1,000 mg capsule 1,000 mg PO DAILY Patient Comments: 04.17.19 pt states he takes an [place] but unsure which one.HE atorvastatin 10 mg tablet 10 mg PO DAILY Qty: 90 4RF ibuprofen 600 mg tablet 600 mg PO TID PRN (Reason: pain) Qty: 60 2RF amlodipine 10 mg tablet 10 mg PO DAILY Qty: 90 6RF lisinopril 40 mg tablet 40 mg PO DAILY Qty: 90 4RF No Action multivitamin [Daily Multiple] 1 EACH tablet 1 ea PO DAILY Patient Comments: Liquid mixture~ aj Discharge Instructions Referrals: Juana Ibanez MD, [place] [Primary Care Provider] - (follow up in 3-5 days) Natalie Tellez MD [ [facility] STAFF PHYSICIAN] - (follow up mery for further evaluation of stable angina) Activity:: Activity as Tolerated Equipment/Supplies:: No Equipment Needed Diet:: As Tolerated DS: Summary Summary Time spent discussing smoking cessation with patient: more than 10 minutes Time Spent with Patient providing and/or coordinating discharge services: Greater than 30 minutes Status at Discharge Functional status at discharge: independent ambulation Overall status at discharge: patient is back to baseline Mental Status: mental status grossly normal Speech and Movement: speech and movement normal Mood: congruent mood Affect: normal affect Quality:SDOH Health Related Social Needs: No Data to Display Exam Narrative Exam Narrative: Head eyes ears nose and throat: Normocephalic atraumatic mucous membranes moist oropharynx clear extract motions are intact Neck: No lymphadenopathy no JVD no thyroid megaly Cardiovascular: No murmur rubs gallops clear to auscultate, regular rate and rhythm Lungs: Clear to auscultation bilaterally with good air exchange no accessory muscle use is noted Abdomen: Soft nontender nondistended bowel sounds active Extremities: No cyanosis clubbing or edema in upper or lower extremities Neurologic: Cranial nerves II through XII intact as tested reflexes in upper lower extremity normal Psych: Alert and oriented x 3 General: Appears stated age no apparent distress responds appropriately to verbal stimuli Psych Mental Status: mental status grossly normal Speech and Movement: speech and movement normal Mood: congruent mood Affect: normal affect DS: Data Vitals/I&O Vitals and I&O: Vital Signs Temperature 36.8 C 08/18/24 07:12 Temperature Source Temporal Artery Scan 08/18/24 07:12 Pulse 54 L 08/18/24 07:12 Pulse Rhythm Regular 08/17/24 18:06 Pulse 55 L 08/17/24 17:50 Respiratory Rate 18 08/18/24 07:12 Respiratory Effort Normal 08/17/24 18:06 Respiratory Depth Normal 08/17/24 18:06 Respiratory Pattern Normal 08/17/24 18:06 Blood Pressure 124/63 08/18/24 07:12 Blood Pressure Mean 102 08/17/24 17:46 Blood Pressure Position Sitting 08/17/24 12:26 Pulse Oximetry 98 08/18/24 07:12 Oxygen Delivery Method Room Air 08/18/24 07:12 Oxygen Flow Rate 0 08/18/24 07:12 Pain Level 0 08/18/24 03:01 Intake & Output 08/17/24 08/17/24 08/18/24 11:59 23:59 11:59 Intake Total 300 / 300 Balance 300 / 300 Weight 79.746 kg Intake: IV Oral 300 / 300 Other: Urine Appearance Clear Comment voided in toilet x 1 patient voided in toilet independently. Data Completed and Pending Labs on day of discharge: Labs from last 24 hours 08/18/24 08/17/24 08/17/24 06:00 22:50 20:43 WBC RBC Hgb Hct MCV MCH MCHC RDW Plt Count MPV Immature Gran % Neutrophils % Lymphocytes % Monocytes % Eosinophils % Basophils % Nucleated RBC % Absolute Neutrophils Absolute Lymphocytes Absolute Monocytes Absolute Eosinophils Absolute Basophils PT INR APTT VBG Lactate Sodium Potassium Chloride Carbon Dioxide Anion Gap BUN Creatinine Est GFR (CKD-EPI 2020) Glucose Calcium Total Bilirubin AST ALT Alkaline Phosphatase Troponin I 20 23 Cancelled Total Protein Albumin 08/17/24 08/17/24 08/17/24 20:40 18:43 18:40 WBC RBC Hgb Hct MCV MCH MCHC RDW Plt Count MPV Immature Gran % Neutrophils % Lymphocytes % Monocytes % Eosinophils % Basophils % Nucleated RBC % Absolute Neutrophils Absolute Lymphocytes Absolute Monocytes Absolute Eosinophils Absolute Basophils PT INR APTT VBG Lactate Sodium Potassium Chloride Carbon Dioxide Anion Gap BUN Creatinine Est GFR (CKD-EPI 2020) Glucose Calcium Total Bilirubin AST ALT Alkaline Phosphatase Troponin I Cancelled Cancelled 26 Total Protein Albumin 08/17/24 08/17/24 08/17/24 17:43 15:54 13:54 WBC RBC Hgb Hct MCV MCH MCHC RDW Plt Count MPV Immature Gran % Neutrophils % Lymphocytes % Monocytes % Eosinophils % Basophils % Nucleated RBC % Absolute Neutrophils Absolute Lymphocytes Absolute Monocytes Absolute Eosinophils Absolute Basophils PT INR APTT VBG Lactate Sodium Potassium Chloride Carbon Dioxide Anion Gap BUN Creatinine Est GFR (CKD-EPI 2020) Glucose Calcium Total Bilirubin AST ALT Alkaline Phosphatase Troponin I Cancelled 24 20 Total Protein Albumin 08/17/24 12:45 WBC 5.99 RBC 4.44 Hgb 13.6 Hct 42.3 MCV 95 MCH 30.6 MCHC 32.2 RDW 13.0 Plt Count 174 MPV 10.4 Immature Gran % 0.3 Neutrophils % 60.2 Lymphocytes % 23.4 Monocytes % 12.4 Eosinophils % 3.0 Basophils % 0.7 Nucleated RBC % 0.0 Absolute Neutrophils 3.61 Absolute Lymphocytes 1.40 Absolute Monocytes 0.74 Absolute Eosinophils 0.18 Absolute Basophils 0.04 PT 10.0 INR 1.0 APTT 24.6 VBG Lactate 0.7 Sodium 141 Potassium 4.4 Chloride 104 Carbon Dioxide 24.8 Anion Gap 12.2 H BUN 29 H Creatinine 1.5 H Est GFR (CKD-EPI 2020) 46.48 Glucose 95 Calcium 9.5 Total Bilirubin 0.36 AST 24 ALT 25 Alkaline Phosphatase 124 H Troponin I 16 Total Protein 9.3 H Albumin 4.3 PFSH All Active Problems (Updated 08/17/24 @ 17:05 by Aristides Ash DO) Elevated troponin level (Acute) Arm pain, left (Acute) Prostate cancer (Chronic) Elevated PSA (Acute) Actinic keratosis (Acute) Dupuytren's contracture of left hand (Acute) ring finger Medial epicondylitis, 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 LCX stent placed; MPI in 2004=sm fixed inf. wall defect; neg. 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) Renal insufficiency (Chronic) Gout (Chronic) Medical History Complete tear of right rotator cuff Femoroacetabular impingement of left hip Biceps tendinitis of right shoulder Right rotator cuff tear Right hip pain Prepatellar bursitis of right knee Carotid artery stenosis Gastric motor function disorder Tobacco use disorder Carpal tunnel syndrome of right wrist Carpal tunnel syndrome of left wrist Pain of left great toe (12/24/17) Surgical History History of carpal tunnel release Left History of intravascular stent placement Status post cholecystectomy left heart cardiac cath Stent placement x 3 Skin Cancer Removal 09/18/17; SQUAMOUS CELL CARCINOMA (RIGHT HELIX) Colonoscopy - MAC (~1999) neg Cholecystectomy Family History Mother , age 98 Heart disease Melanoma Father , AGE 71 Stroke Stomach cancer Sister No problems noted. Sister No problems noted. Social History Smoking/Tobacco Use Status: Former Tobacco Use tobacco type: cigarettes and pipe Quit Date: 09/16/96 Tobacco: How many years used: 12 Second Hand Exposure: Yes Smoking risk assessment performed?: Yes Alcohol Intake: current Alcohol Intake frequency: a few times a week Alcohol type: beer and wine Drug use: Occasionally Substance use type: former substance user and marijuana Caregiver/Support person: No Household members: spouse Housing: house Communication Needs: Hard of Hearing Do you need help understanding health information?: Never Pets and animals: Yes Pets and animals: cat(s), dog(s) and horse(s) Sexually active: No Do you think of yourself as: straight/heterosexual Current gender identity: male What is your relationship status?: How often do you talk on the phone with friends or family?: once per week How often do you get together with friends or relatives?: decline to answer How often do you attend synagogue or yazdanism services?: decline to answer Do you belong to any clubs or organized social groups?: no Panel score (0-1 are the most socially isolated patients): 1 What type of physical activity do you participate in: aerobic, weight lifting and yoga Duration: 15-30 minutes/day Frequency: 3-4 times per week Sophia/Mosque: No preference Special sophia needs: No Seatbelt use: always Drive intox or ride w/intox cmv driver: No Do you feel safe at home: Yes Do you feel safe in your relationship?: Yes Time Spent with Patient Time Spent with Patient: 45-69 minutes Time was spent: preparing to see the patient(eg.review tests), obtaining and/or reviewing separately otained hiistory, ordering medications,tests, procedures, referring, communicating with other health career representative, indepentently interpreting results, counseling the patient and care coordination
--- NOTE | 2024-08-18 10:56 | W.PM.DS.N ---
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 Patient states that when he had his stents placed in approximately 2001 he had the same presentation. Patient states that the left arm pain gets worse with exercise and stops when he is done exercising. Patient was noted to have mild elevations in his troponins but was never outside of the normal range. Recheck of cardiac enzymes showed values of 20, 23, and 28. Vital signs are otherwise stable. EKGs were not indicative of ST elevation or depression. I did discuss the case with Dr. Tellez of the cardiology service who recommended outpatient cardiac catheterization. It is my feeling as well as Doubts that this is stable angina and certainly will need to be followed up on but not emergently or urgently. Her recommendation is to follow-up in her clinic to set up the cardiac cath. At this time there is no recommendation for a stress test either exercise or chemical. My plan is to discharge the patient today. I did recommend against exercise or exertion until seen and cleared by Cardiology service Home Meds and New Rx's Prescriptions: Continued aspirin [Aspirin Childrens] 81 mg tablet,chewable 81 mg PO DAILY coenzyme Q10 [CoQ-10] 100 mg capsule 100 mg PO DAILY omega-3 fatty acids 1,000 mg capsule 1,000 mg PO DAILY Patient Comments: 8 pt states he takes an [place] but unsure which one.HE atorvastatin 10 mg tablet 10 mg PO DAILY Qty: 90 4RF ibuprofen 600 mg tablet 600 mg PO TID PRN (Reason: pain) Qty: 60 2RF amlodipine 10 mg tablet 10 mg PO DAILY Qty: 90 6RF lisinopril 40 mg tablet 40 mg PO DAILY Qty: 90 4RF No Action multivitamin [Daily Multiple] 1 EACH tablet 1 ea PO DAILY Patient Comments: Liquid mixture~ aj Discharge Instructions Referrals: Juana Ibanez MD, [place] [Primary Care Provider] - (follow up in 3-5 days) Natalie Tellez MD [ [facility] STAFF PHYSICIAN] - (follow up mery for further evaluation of stable angina) Activity:: Activity as Tolerated Equipment/Supplies:: No Equipment Needed Diet:: As Tolerated DS: Summary Time Spent with Patient providing and/or coordinating discharge services: Greater than 30 minutes Status at Discharge Functional status at discharge: independent ambulation Overall status at discharge: patient is back to baseline Mental Status: mental status grossly normal Speech and Movement: speech and movement normal Mood: congruent mood Affect: normal affect Quality:SDOH Health Related Social Needs: No Data to Display Exam Narrative Exam Narrative: Head eyes ears nose and throat: Normocephalic atraumatic mucous membranes moist oropharynx clear extract motions are intact Neck: No lymphadenopathy no JVD no thyroid megaly Cardiovascular: No murmur rubs gallops clear to auscultate, regular rate and rhythm Lungs: Clear to auscultation bilaterally with good air exchange no accessory muscle use is noted Abdomen: Soft nontender nondistended bowel sounds active Extremities: No cyanosis clubbing or edema in upper or lower extremities Neurologic: Cranial nerves II through XII intact as tested reflexes in upper lower extremity normal Psych: Alert and oriented x 3 General: Appears stated age no apparent distress responds appropriately to verbal stimuli Psych Mental Status: mental status grossly normal Speech and Movement: speech and movement normal Mood: congruent mood Affect: normal affect DS: Data Vitals/I&O Vitals and I&O: Vital Signs Temperature 36.8 C 08/18/24 07:12 Temperature Source Temporal Artery Scan 08/18/24 07:12 Pulse 54 L 08/18/24 07:12 Pulse Rhythm Regular 08/17/24 18:06 Pulse 55 L 08/17/24 17:50 Respiratory Rate 18 08/18/24 07:12 Respiratory Effort Normal 08/17/24 18:06 Respiratory Depth Normal 08/17/24 18:06 Respiratory Pattern Normal 08/17/24 18:06 Blood Pressure 124/63 08/18/24 07:12 Blood Pressure Mean 102 08/17/24 17:46 Blood Pressure Position Sitting 08/17/24 12:26 Pulse Oximetry 98 08/18/24 07:12 Oxygen Delivery Method Room Air 08/18/24 07:12 Oxygen Flow Rate 0 08/18/24 07:12 Pain Level 0 08/18/24 03:01 Intake & Output 08/17/24 08/17/24 08/18/24 11:59 23:59 11:59 Intake Total 300 / 300 Balance 300 / 300 Weight 79.746 kg Intake: IV Oral 300 / 300 Other: Urine Appearance Clear Comment voided in toilet x 1 patient voided in toilet independently. Data Completed and Pending Labs on day of discharge: Labs from last 24 hours 08/18/24 08/17/24 08/17/24 06:00 22:50 20:43 WBC RBC Hgb Hct MCV MCH MCHC RDW Plt Count MPV Immature Gran % Neutrophils % Lymphocytes % Monocytes % Eosinophils % Basophils % Nucleated RBC % Absolute Neutrophils Absolute Lymphocytes Absolute Monocytes Absolute Eosinophils Absolute Basophils PT INR APTT VBG Lactate Sodium Potassium Chloride Carbon Dioxide Anion Gap BUN Creatinine Est GFR (CKD-EPI 2020) Glucose Calcium Total Bilirubin AST ALT Alkaline Phosphatase Troponin I 20 23 Cancelled Total Protein Albumin 08/17/24 08/17/24 08/17/24 20:40 18:43 18:40 WBC RBC Hgb Hct MCV MCH MCHC RDW Plt Count MPV Immature Gran % Neutrophils % Lymphocytes % Monocytes % Eosinophils % Basophils % Nucleated RBC % Absolute Neutrophils Absolute Lymphocytes Absolute Monocytes Absolute Eosinophils Absolute Basophils PT INR APTT VBG Lactate Sodium Potassium Chloride Carbon Dioxide Anion Gap BUN Creatinine Est GFR (CKD-EPI 2020) Glucose Calcium Total Bilirubin AST ALT Alkaline Phosphatase Troponin I Cancelled Cancelled 26 Total Protein Albumin 08/17/24 08/17/24 08/17/24 17:43 15:54 13:54 WBC RBC Hgb Hct MCV MCH MCHC RDW Plt Count MPV Immature Gran % Neutrophils % Lymphocytes % Monocytes % Eosinophils % Basophils % Nucleated RBC % Absolute Neutrophils Absolute Lymphocytes Absolute Monocytes Absolute Eosinophils Absolute Basophils PT INR APTT VBG Lactate Sodium Potassium Chloride Carbon Dioxide Anion Gap BUN Creatinine Est GFR (CKD-EPI 2020) Glucose Calcium Total Bilirubin AST ALT Alkaline Phosphatase Troponin I Cancelled 24 20 Total Protein Albumin 08/17/24 12:45 WBC 5.99 RBC 4.44 Hgb 13.6 Hct 42.3 MCV 95 MCH 30.6 MCHC 32.2 RDW 13.0 Plt Count 174 MPV 10.4 Immature Gran % 0.3 Neutrophils % 60.2 Lymphocytes % 23.4 Monocytes % 12.4 Eosinophils % 3.0 Basophils % 0.7 Nucleated RBC % 0.0 Absolute Neutrophils 3.61 Absolute Lymphocytes 1.40 Absolute Monocytes 0.74 Absolute Eosinophils 0.18 Absolute Basophils 0.04 PT 10.0 INR 1.0 APTT 24.6 VBG Lactate 0.7 Sodium 141 Potassium 4.4 Chloride 104 Carbon Dioxide 24.8 Anion Gap 12.2 H BUN 29 H Creatinine 1.5 H Est GFR (CKD-EPI 2020) 46.48 Glucose 95 Calcium 9.5 Total Bilirubin 0.36 AST 24 ALT 25 Alkaline Phosphatase 124 H Troponin I 16 Total Protein 9.3 H Albumin 4.3 PFSH All Active Problems (Updated 08/17/24 @ 17:05 by Aristides Ash DO) Elevated troponin level (Acute) Arm pain, left (Acute) Prostate cancer (Chronic) Elevated PSA (Acute) Actinic keratosis (Acute) Dupuytren's contracture of left hand (Acute) ring finger Medial epicondylitis, 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 LCX stent placed; MPI in 2004=sm fixed inf. wall defect; neg. 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) Renal insufficiency (Chronic) Gout (Chronic) Medical History Complete tear of right rotator cuff Femoroacetabular impingement of left hip Biceps tendinitis of right shoulder Right rotator cuff tear Right hip pain Prepatellar bursitis of right knee Carotid artery stenosis Gastric motor function disorder Tobacco use disorder Carpal tunnel syndrome of right wrist Carpal tunnel syndrome of left wrist Pain of left great toe (12/24/17) Surgical History History of carpal tunnel release Left History of intravascular stent placement Status post cholecystectomy left heart cardiac cath Stent placement x 3 Skin Cancer Removal 09/18/17; SQUAMOUS CELL CARCINOMA (RIGHT HELIX) Colonoscopy - MAC (~1999) neg Cholecystectomy Family History Mother , age 98 Heart disease Melanoma Father , AGE 71 Stroke Stomach cancer Sister No problems noted. Sister No problems noted. Social History Smoking/Tobacco Use Status: Former Tobacco Use tobacco type: cigarettes and pipe Quit Date: 09/16/96 Tobacco: How many years used: 12 Second Hand Exposure: Yes Smoking risk assessment performed?: Yes Alcohol Intake: current Alcohol Intake frequency: a few times a week Alcohol type: beer and wine Drug use: Occasionally Substance use type: former substance user and marijuana Caregiver/Support person: No Household members: spouse Housing: house Communication Needs: Hard of Hearing Do you need help understanding health information?: Never Pets and animals: Yes Pets and animals: cat(s), dog(s) and horse(s) Sexually active: No Do you think of yourself as: straight/heterosexual Current gender identity: male What is your relationship status?: How often do you talk on the phone with friends or family?: once per week How often do you get together with friends or relatives?: decline to answer How often do you attend uatsdin or buddhist services?: decline to answer Do you belong to any clubs or organized social groups?: no Panel score (0-1 are the most socially isolated patients): 1 What type of physical activity do you participate in: aerobic, weight lifting and yoga Duration: 15-30 minutes/day Frequency: 3-4 times per week Sophia/Nondenominational: No preference Special sophia needs: No Seatbelt use: always Drive intox or ride w/intox city route driver: No Do you feel safe at home: Yes Do you feel safe in your relationship?: Yes Time Spent with Patient Time Spent with Patient: 45-69 minutes Time was spent: preparing to see the patient(eg.review tests), obtaining and/or reviewing separately otained hiistory, ordering medications,tests, procedures, referring, communicating with other health daytime caregiver, indepentently interpreting results, counseling the patient and care coordination
--- NOTE | 2024-08-18 11:00 | CMDISCH_ITS ---
Date of service: 08/18/24 Time of Service: 11:01 LACE Index Scoring Tool Questions: Length of Stay (in days): 1 Was the patient admitted via the E.D.?: Yes Comorbidities: Metastatic Solid Tumor (Basal cell Carcinoma) E.D. Visits: 1 Answers: Total Score: 10 Risk of Readmission: High Risk Care Management Discharge Plan Reason for Hospitalization: CAD Discharge Plan: Discharge home via private vehicle with family; needs close fo llow up with PCP and cariology is outpatient cardiology. No new services are ordered prior to discharge. Patient/Family Education Needs: Review discharge instructions, limitations, medications and plan to follow up with PCP and Cardiology. Discuss ask me three. SDOH Health Related Social Needs: No Data to Display
[2024-08-18 11:09] VITALS: BP 130/52; PULSE 55; RESP 20; TEMP 36.6; O2SAT 99
--- NOTE | 2024-08-18 16:04 | CHAPLAIN ---
I had a brief visit with Steve this morning. He said he was being discharged later today and will be following up with outpatient tests and visits, and was happy about getting home.
== END 2024-08-18 12:47 | disposition home or self-care (01) ==
LOC: ER 17:05 → MS 18:00
PROVIDERS: Admitting Provider Hospitalist; Emergency Provider Student in an Organized Health Care Education/Training Program; PCP Family Medicine; Visit Provider Hospitalist
DX: I25.119 Atherosclerotic heart disease of native coronary artery with unspecified angina pectoris; I10 Essential (primary) hypertension; E78.5 Hyperlipidemia, unspecified; R97.20 Elevated prostate specific antigen [PSA]; Z79.899 Other long term (current) drug therapy; Z95.5 Presence of coronary angioplasty implant and graft; Z85.46 Personal history of malignant neoplasm of prostate; Z92.3 Personal history of irradiation; R74.8 Abnormal levels of other serum enzymes; M54.12 Radiculopathy, cervical region; G89.29 Other chronic pain; M54.50 Low back pain, unspecified; Z87.891 Personal history of nicotine dependence; H93.293 Other abnormal auditory perceptions, bilateral
CPT/HCPCS: 00123; 36415; 71275; 80053; 93005; 96372; 99285; 83605; 84484; 85025; 85610; 85730; 93010; 99222; 99239; G0378; J1644; J3490

== ENCOUNTER 2024-08-26 02:36 | Outpatient (CLI) | payer MEDICARE, SELFPAY ==
[2024-08-27 10:16] LABS: Lyme Ab w Rflx to Lyme Confirm Negative (Negative)
[2024-08-29 00:12] LABS: Anaplasma phagocytophilum Negative (Negative); B. miyamotoi PCR Negative (Negative); Babesia divergens/MO-1 Negative (Negative); Babesia duncani Negative (Negative); Babesia microti Negative (Negative); Ehrlichia chaffeensis Negative (Negative); Ehrlichia ewingii/canis Negative (Negative); Ehrlichia muris eauclairensis Negative (Negative)
== END 2024-08-26 02:37 | disposition home or self-care (01) ==
LOC: LBO 02:36
PROVIDERS: PCP Family Medicine; Visit Provider Family Medicine
DX: S30.861A Insect bite (nonvenomous) of abdominal wall, initial encounter (principal); W57.XXXA Bitten or stung by nonvenomous insect and other nonvenomous arthropods, initial encounter; I25.10 Atherosclerotic heart disease of native coronary artery without angina pectoris
CPT/HCPCS: 36415; 87798; 86618

== ENCOUNTER 2024-08-27 09:18 | Outpatient (CLI) | payer MEDICARE, SELFPAY ==
--- NOTE | 2024-08-27 09:15 | RT.EKG_ITS ---
APPROVED REPORT Exam: Resting ECG Reason for Exam: CAD, CP Patient Location: O HR:58 bpm ECG Measurements Heart Rate 58 AXIS IL 144 P 43 QRSd 162 QRS 87 QT 446 T -15 QTc 439 Conclusion Sinus rhythm...normal P axis, V-rate 50- 99 Right bundle branch block...QRSd>120, terminal axis(90,270)
== END 2024-08-27 09:19 | disposition home or self-care (01) ==
LOC: DI.CARD 09:18
PROVIDERS: PCP Family Medicine; Visit Provider Internal Medicine Cardiovascular Disease
DX: I25.10 Atherosclerotic heart disease of native coronary artery without angina pectoris (principal)
CPT/HCPCS: 93010

== ENCOUNTER → 2024-08-27 11:03 | Outpatient (BNVA) | payer MEDICARE, SELFPAY | PROVIDERS: PCP Family Medicine; Referring Provider Family Medicine; Visit Provider Internal Medicine Cardiovascular Disease | DX: I45.10 Unspecified right bundle-branch block (principal); I25.10 Atherosclerotic heart disease of native coronary artery without angina pectoris | CPT/HCPCS: 93005; 99213 ==

== ENCOUNTER 2024-11-24 03:02 | Outpatient (CLI) | payer MEDICARE, SELFPAY ==
[2024-11-25 18:42] LABS: PSA, Ultrasensitive 0.34 ng/mL (<= 7.2)
[2024-12-01 14:21] LABS: Testosterone, Total 246 ng/dL (240-950)
== END 2024-11-24 03:03 | disposition home or self-care (01) ==
PROVIDERS: PCP Family Medicine; Visit Provider Nurse Practitioner Gerontology
DX: C61 Malignant neoplasm of prostate (principal)
CPT/HCPCS: 36415; 84153; 84403

== ENCOUNTER 2024-11-24 08:04 | Outpatient (CLI) | payer MEDICARE, SELFPAY ==
--- NOTE | 2024-11-24 08:00 | RT.EKG_ITS ---
APPROVED REPORT Exam: Resting ECG Reason for Exam: CAD Patient Location: O HR:67 bpm ECG Measurements Heart Rate 67 AXIS [place] 148 P 64 QRSd 157 QRS 82 QT 421 T 4 QTc 445 Conclusion Sinus rhythm...normal P axis, V-rate 50- 99 Probable left atrial enlargement...P >50mS, <-0.10mV V1 Right bundle branch block...QRSd>120, terminal axis(90,270)
== END 2024-11-24 08:05 | disposition home or self-care (01) ==
LOC: DI.CARD 08:05
PROVIDERS: PCP Family Medicine; Visit Provider Internal Medicine Cardiovascular Disease
DX: Z95.1 Presence of aortocoronary bypass graft (principal); I25.10 Atherosclerotic heart disease of native coronary artery without angina pectoris
CPT/HCPCS: 93010

== ENCOUNTER 2024-11-25 11:03 | Emergency (ER) | payer MEDICARE, SELFPAY ==
[2024-11-25 11:16] VITALS: BP 124/69; PULSE 95; RESP 15; TEMP 35.8; O2SAT 96
[2024-11-25 12:23] VITALS: BP 124/69; PULSE 95; RESP 15; TEMP 35.8; O2SAT 96
--- NOTE | 2024-11-25 13:37 | ED.GENADUL_ITS ---
Discharge Plan Disposition Patient Disposition: Home Condition: Stable Discharge Details Clinical Impression: Fecal impaction Primary Care Provider: Juana Ibanez ED Provider: Claudia Garnica Home Meds and New Rx's Prescriptions: New polyethylene glycol 3350 [Miralax] 17 gram/dose powder 17 g PO BID Qty: 238 0RF sennosides [senna] 8.6 mg tablet 8.6 mg PO DAILY PRNQty: 30 0RF No Action aspirin [Aspirin Childrens] 81 mg tablet,chewable 81 mg PO DAILY coenzyme Q10 [CoQ-10] 100 mg capsule 100 mg PO DAILY omega-3 fatty acids 1,000 mg capsule 1,000 mg PO DAILY Patient Comments: 8. pt states he takes an Hope but unsure which one.HE amlodipine 10 mg tablet 10 mg PO DAILY Qty: 90 6RF cholecalciferol (vitamin D3) 25 mcg (1,000 unit) capsule 25 mcg PO DAILY clopidogrel [Plavix] 75 mg tablet 75 mg PO DAILY Qty: 90 4RF atorvastatin 10 mg tablet 10 mg PO DAILY Qty: 90 4RF metoprolol succinate 25 mg tablet extended release 24 hr 25 mg PO DAILY Qty: 90 5RF multivitamin [Daily Multiple] 1 EACH tablet 1 ea PO DAILY Patient Comments: Liquid mixture~ aj Discharge Instructions Instructions: Fecal Impaction (DC) Additional Instructions: You were seen in the emergency department today for evaluation of constipation and were found to have a fecal impaction. This was disimpacted in the emergency department and you passed a large volume of stool. It is important that you start a bowel regimen, I have recommended to starting senna daily and MiraLAX twice per day, and you can increase or decrease this medication as needed to ensure that you are passing 1 stool per day. Please follow-up with your primary care provider in the next few days to discuss this visit and any symptoms that change, worsen, or persist. Thank you for allowing us to be part of your care. HPI General Mode of arrival: ambulatory . Date/Time Provider Initiated Documentation: 11/25/24 11:18 . Limitations to Documentation: no limitations . Information obtained by: patient, family and old records reviewed . HPI Narrative: HPI: This is an 79-year-old male patient with a history of coronary artery disease, hypertension, hyperlipidemia, and renal insufficiency presenting for evaluation of constipation. The patient reports that he has not been able to pass stool for 2 days, states that he tried a enema in the outpatient environment without success. States that he is passing gas, states that he is not experiencing any abdominal pain, fever chills, nausea or vomiting. He has never had issues with constipation in the past but does state that he often goes several days without stooling. Was prompted to seek care today because he felt a pain in his anal area and was concerned. No medications taken prior to arrival, does not take any medications for a bowel regimen at this time. Exam: Gen: Awake and alert, in no apparent distress HEENT: Non-icteric sclera Neck: Supple Lungs: No apparent respiratory distress, normal respiratory effort. CV: Appears well perfused, heart with regular rate and rhythm Abdomen: Non-distended, soft, nontender to palpation without rigidity, rebound, or guarding. Rectal: Rectal examination supervised by the patient's family member given lack of available staff members, normal external anal examination without fissures, hemorrhoids. The patient does have a hard stool ball noted at the anal verge. MSK: Moves 4 extremities without apparent limitation in ROM Skin: Visualized skin without rashes, cyanosis. Neuro: Normal Gait, no obvious focal deficits or facial asymmetry. Speaks in full, clear sentences. Psych: Appropriate for situation. MDM: This is an 79-year-old male patient presenting for evaluation of cons tipation. My examination is most concerning for fecal impaction, certainly considered functional constipation, slow transit, medication effect. I am reassured against severe intra-abdominal pathology such as bowel obstruction, given the patient's lack of abdominal pain and presence of stool. He is otherwise hemodynamically appropriate without acute complaint. ED Course: A rectal disimpaction was performed as noted below, patient tolerated the procedure well and a large amount of hard stool was removed from the rectum. After this the patient was able to spontaneously passed a large stool and reports complete resolution of his anal pain. His repeat abdominal examination remains benign, and at this time I do not feel that the patient warrants laboratory evaluation or emergent intra-abdominal imaging. I did start the patient on a bowel regimen, to include senna and MiraLAX titrated to 1 soft stool per day. At this time, the patient has had a full medical evaluation and is safe for discharge to home. They are hemodynamically stable, ambulatory, and tolerating PO. They are understanding of the follow-up plan and return precautions. They left our facility without incident. Claudia Garnica MD Related Data Home Medications ?Medication ?Instructions ?Recorded ?Confirmed multivitamin (Daily Multiple 1 ea PO DAILY 10/11/16 11/25/24 tablet) aspirin 81 mg chewable tablet 81 mg PO DAILY 12/23/18 11/25/24 (Aspirin Childrens) coenzyme Q10 100 mg capsule 100 mg PO DAILY 12/23/18 11/25/24 (CoQ-10) omega-3 fatty acids 1,000 mg 1,000 mg PO DAILY 04/17/19 11/25/24 capsule amlodipine 10 mg tablet 10 mg PO DAILY #90 tabs 08/20/24 11/25/24 atorvastatin 10 mg tablet 10 mg PO DAILY #90 tabs 11/12/24 11/25/24 cholecalciferol (vitamin D3) 25 25 mcg PO DAILY 11/12/24 11/25/24 mcg (1,000 unit) capsule clopidogrel 75 mg tablet (Plavix) 75 mg PO DAILY #90 tabs 11/12/24 11/25/24 metoprolol succinate 25 mg 25 mg PO DAILY #90 tabs 11/12/24 11/25/24 tablet,extended release 24 hr polyethylene glycol 3350 17 17 g PO BID #238 grams 11/25/24 gram/dose oral powder (Miralax) sennosides 8.6 mg tablet (senna) 8.6 mg PO DAILY PRN #30 tabs 11/25/24 Previous Rx's ?Medication ?Instructions ?Recorded amlodipine 10 mg tablet 10 mg PO DAILY #90 tabs 08/20/24 atorvastatin 10 mg tablet 10 mg PO DAILY #90 tabs 11/12/24 clopidogrel 75 mg tablet (Plavix) 75 mg PO DAILY #90 tabs 11/12/24 metoprolol succinate 25 mg 25 mg PO DAILY #90 tabs 11/12/24 tablet,extended release 24 hr polyethylene glycol 3350 17 17 g PO BID #238 grams 11/25/24 gram/dose oral powder (Miralax) sennosides 8.6 mg tablet (senna) 8.6 mg PO DAILY PRN #30 tabs 11/25/24 Allergies Allergy/AdvReac Type Severity Reaction Status Date / Time No Known Allergies Allergy Verified 11/25/24 11:18 General Stated Complaint: Abd Prob SUSANA: 3 Course Vital Signs Vital signs: Vital Signs Temperature 35.8 C L 11/25/24 11:16 Pulse 95 H 11/25/24 11:16 Respiratory Rate 15 11/25/24 11:16 Blood Pressure 124/69 11/25/24 11:16 Pulse Oximetry 96 11/25/24 11:16 Temperature 35.8 C L 11/25/24 12:23 Pulse 95 H 11/25/24 12:23 Respiratory Rate 15 11/25/24 12:23 Blood Pressure 124/69 11/25/24 12:23 Blood Pressure Position Sitting 11/25/24 12:23 Pulse Oximetry 96 11/25/24 12:23 Oxygen Delivery Method Room Air 11/25/24 12:23 Oxygen Flow Rate 0 11/25/24 12:23 Procedure Rectal Dismpaction Date of Procedure: 11/25/24 Time of procedure: 11:30 Provider that performed the procedure: Claudia Garnica Indication: fecal impaction Patient Consented: Verbally Technique: manual disimpaction with gloved finger Result: significant stool output Patient Tolerated Procedure: well Complications: none Medical Decision Making Quality:SDOH Health Related Social Needs: No Data to Display PFSH All Active Problems (Updated 11/25/24 @ 13:38 by Cluadia Garnica MD) Fecal impaction (Acute) CAD (coronary artery disease) (Chronic) S/P CABG x 3 (Acute ~10/2024) Tick bite of abdomen (Acute) Elevated troponin level (Acute) Arm pain, left (Acute) Prostate cancer (Chronic) Elevated PSA (Acute) Actinic keratosis (Acute) Dupuytren's contracture of left hand (Acute) ring finger Medial epicondylitis, 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 LCX stent placed; MPI in 2004=sm fixed inf. wall defect; neg. 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) Renal insufficiency (Chronic) Gout (Chronic) Medical History Complete tear of right rotator cuff Femoroacetabular impingement of left hip Biceps tendinitis of right shoulder Right rotator cuff tear Right hip pain Prepatellar bursitis of right knee Carotid artery stenosis Gastric motor function disorder Tobacco use disorder Carpal tunnel syndrome of right wrist Carpal tunnel syndrome of left wrist Pain of left great toe (12/24/17) Surgical History History of carpal tunnel release Left History of intravascular stent placement Status post cholecystectomy left heart cardiac cath Stent placement x 3 Skin Cancer Removal 09/18/17; SQUAMOUS CELL CARCINOMA (RIGHT HELIX) Colonoscopy - MAC (~1999) neg Cholecystectomy Family History Mother , age 98 Heart disease Melanoma Father , AGE 71 Stroke Stomach cancer Sister No problems noted. Sister No problems noted. Social History Smoking/Tobacco Use Status: Former Tobacco Use tobacco type: cigarettes and pipe Quit Date: 09/16/96 Tobacco: How many years used: 12 Second Hand Exposure: Yes Smoking risk assessment performed?: Yes Alcohol Intake: current Alcohol Intake frequency: a few times a week Alcohol type: beer and wine Drug use: Occasionally Substance use type: former substance user and marijuana Caregiver/Support person: No Household members: spouse Housing: house Communication Needs: Hard of Hearing Do you need help understanding health information?: Never Pets and animals: Yes Pets and animals: cat(s), dog(s) and horse(s) Sexually active: No Do you think of yourself as: straight/heterosexual Current gender identity: male What is your relationship status?: How often do you talk on the phone with friends or family?: once per week How often do you get together with friends or relatives?: decline to answer How often do you attend nondenominational or oriental orthodox services?: decline to answer Do you belong to any clubs or organized social groups?: no Panel score (0-1 are the most socially isolated patients): 1 What type of physical activity do you participate in: aerobic, weight lifting and yoga Duration: 15-30 minutes/day Frequency: 3-4 times per week Sophia/Jehovah'S Witness: No preference Special sophia needs: No Seatbelt use: always Drive intox or ride w/intox cdl b driver: No Do you feel safe at home: Yes Do you feel safe in your relationship?: Yes
== END 2024-11-25 13:56 | disposition home or self-care (01) ==
PROVIDERS: Emergency Provider Emergency Medicine; PCP Family Medicine
DX: K56.41 Fecal impaction (principal); I25.10 Atherosclerotic heart disease of native coronary artery without angina pectoris; I10 Essential (primary) hypertension; E78.5 Hyperlipidemia, unspecified; Z79.82 Long term (current) use of aspirin; Z79.01 Long term (current) use of anticoagulants
CPT/HCPCS: 99283

== ENCOUNTER 2024-12-04 12:13 | Outpatient (RCR) | payer MEDICARE, SELFPAY ==
--- NOTE | 2024-12-04 11:15 | RT.EKG_ITS ---
APPROVED REPORT Exam: Resting ECG Reason for Exam: Baseline Patient Location: O HR:64 bpm ECG Measurements Heart Rate 64 AXIS [place] 145 P 71 QRSd 159 QRS 126 QT 446 T -1 QTc 461 Conclusion Sinus rhythm...normal P axis, V-rate 50- 99 RBBB
== END 2024-12-14 23:59 | disposition home or self-care (01) ==
LOC: CR 12:13
PROVIDERS: PCP Family Medicine; Visit Provider Internal Medicine Cardiovascular Disease
DX: Z51.89 Encounter for other specified aftercare (principal); I25.810 Atherosclerosis of coronary artery bypass graft(s) without angina pectoris
CPT/HCPCS: S9472

== ENCOUNTER 2024-12-14 09:09 | Outpatient (RCR) | payer MEDICARE, SELFPAY | END 2024-12-14 23:59 | disposition home or self-care (01) | LOC: CR 09:09 | PROVIDERS: PCP Family Medicine; Visit Provider Internal Medicine Cardiovascular Disease | DX: I25.10 Atherosclerotic heart disease of native coronary artery without angina pectoris (principal); Z51.89 Encounter for other specified aftercare | CPT/HCPCS: S9472 ==

== ENCOUNTER 2025-01-13 08:49 | Outpatient (RCR) | payer MEDICARE, SELFPAY | END 2025-01-13 23:59 | disposition home or self-care (01) | LOC: CR 08:49 | PROVIDERS: PCP Family Medicine; Visit Provider Internal Medicine Cardiovascular Disease | DX: I25.10 Atherosclerotic heart disease of native coronary artery without angina pectoris (principal); Z95.2 Presence of prosthetic heart valve; Z51.89 Encounter for other specified aftercare | CPT/HCPCS: S9472 ==

== ENCOUNTER 2025-02-12 09:15 | Outpatient (RCR) | payer MEDICARE, SELFPAY | END 2025-02-13 23:59 | disposition home or self-care (01) | LOC: CR 09:15 | PROVIDERS: PCP Family Medicine; Visit Provider Internal Medicine Cardiovascular Disease | DX: I25.10 Atherosclerotic heart disease of native coronary artery without angina pectoris (principal); Z51.89 Encounter for other specified aftercare | CPT/HCPCS: S9472 ==

== ENCOUNTER 2025-02-15 09:00 | Outpatient (RCR) | payer MEDICARE, SELFPAY | END 2025-03-15 23:59 | disposition home or self-care (01) | LOC: CR 09:00 | PROVIDERS: PCP Family Medicine; Visit Provider Internal Medicine Cardiovascular Disease | DX: I25.10 Atherosclerotic heart disease of native coronary artery without angina pectoris (principal); Z51.89 Encounter for other specified aftercare | CPT/HCPCS: S9472 ==

== ENCOUNTER → 2025-02-26 08:39 | Outpatient (BNVA) | payer MEDICARE, SELFPAY | PROVIDERS: PCP Family Medicine; Visit Provider Internal Medicine Cardiovascular Disease | DX: Z48.812 Encounter for surgical aftercare following surgery on the circulatory system (principal); Z95.1 Presence of aortocoronary bypass graft; I25.810 Atherosclerosis of coronary artery bypass graft(s) without angina pectoris | CPT/HCPCS: 99213 ==

== ENCOUNTER 2025-05-25 08:17 | Outpatient (CLI) | payer MEDICARE, SELFPAY | END 2025-05-25 08:18 | disposition home or self-care (01) | LOC: LBO 08:17 | PROVIDERS: PCP Family Medicine; Visit Provider Nurse Practitioner Gerontology | DX: C61 Malignant neoplasm of prostate (principal) | CPT/HCPCS: 36415; 84153; 84403 ==

== ENCOUNTER → 2025-06-01 15:24 | Outpatient (BNVA) | payer MEDICARE, SELFPAY | PROVIDERS: PCP Family Medicine; Referring Provider Family Medicine; Visit Provider Nurse Practitioner Gerontology | DX: C61 Malignant neoplasm of prostate (principal) | CPT/HCPCS: 99213 ==

== ENCOUNTER → 2025-08-27 08:59 | Outpatient (BNVA) | payer MEDICARE, SELFPAY | PROVIDERS: PCP Family Medicine; Referring Provider Family Medicine; Visit Provider Internal Medicine Cardiovascular Disease | DX: I25.810 Atherosclerosis of coronary artery bypass graft(s) without angina pectoris (principal); I35.0 Nonrheumatic aortic (valve) stenosis | CPT/HCPCS: 99213 ==

== ENCOUNTER 2025-09-06 01:26 | Outpatient (CLI) | payer MEDICARE, SELFPAY ==
[2025-09-06 09:23] LABS: ALT 21 U/L (10-49); AST 27 U/L (<34); Albumin 4.1 g/dL (3.2-5.0); Alkaline Phosphatase 69 U/L (46-116); Anion Gap 9.2 mmol/L (3-11); BUN 20 mg/dL (9-23); Bilirubin, Total 0.5 mg/dL (0.2-1.2); CO2 27.8 mmol/L (20.0-31.0); Calcium 9.1 mg/dL (8.3-10.6); Chloride 108 mmol/L (98-107); Cholesterol 119 mg/dL (<200); Glucose 90 mg/dL (74-106); HDL Cholesterol 43 mg/dL (>or=40); Potassium 4.0 mmol/L (3.5-5.1); Sodium 145 mmol/L (136-145); Total Protein 7.4 g/dL (5.7-8.2)
== END 2025-09-06 01:27 | disposition home or self-care (01) ==
LOC: LBO 01:26
PROVIDERS: PCP Family Medicine; Visit Provider Nurse Practitioner Gerontology
DX: C61 Malignant neoplasm of prostate (principal); I10 Essential (primary) hypertension
CPT/HCPCS: 36415; 80053; 80061; 84153; 84403

== ENCOUNTER → 2025-09-15 11:12 | Outpatient (BNVA) | payer MEDICARE, SELFPAY | PROVIDERS: PCP Family Medicine; Referring Provider Family Medicine; Visit Provider Nurse Practitioner Gerontology | DX: C61 Malignant neoplasm of prostate (principal) | CPT/HCPCS: 99213 ==